=== PATIENT | male | born 1975 | race Caucasian/White ===

== ENCOUNTER 2020-10-15 08:24 | Inpatient (IN) | payer BC ==
[2020-10-15] MEDS ORDERED: BUPIVACAINE 0.25% PF 30 ML VIAL ONE (08:50)
[2020-10-15] MEDS ORDERED: CEFAZOLIN/SWI 2gm 2 GM/20 ML SYR ONE (09:00)
[2020-10-15] MEDS ORDERED: Ringers Lactate 1,000 ML IV ONE ×2 (09:00→12:35)
[2020-10-15] MEDS ORDERED: GLYCOPYRROLATE 0.2 MG/ML SYR ONE (10:57)
[2020-10-15] MEDS ORDERED: propofoL 200 MG/20 ML VIAL IV ONE (10:57)
[2020-10-15] MEDS ORDERED: FENTANYL CITR 100 MCG/2 ML ONE (10:59)
[2020-10-15] MEDS ORDERED: ROCURONIUM 50 MG/5 ML VIAL IV ONE (10:59)
[2020-10-15] MEDS ORDERED: dexAMETHasone 10 MG/ML VIAL ONE (10:59)
[2020-10-15] MEDS ORDERED: MIDAZOLAM HCL 2 MG/2 ML INJ ONE (11:00)
[2020-10-15] MEDS ORDERED: KETOROLAC 30 MG/ML INJ ONE (11:00)
[2020-10-15] MEDS ORDERED: ONDANSETRON 4 MG/2 ML VIAL ONE (11:01)
[2020-10-15] MEDS ORDERED: CLINDAMYCIN INJ 600 MG in NA CHLORIDE 0.9% 50 ML IV ONE (11:09)
[2020-10-15] MEDS ORDERED: FENTANYL CITR 250 MCG/5 ML ONE (11:30)
[2020-10-15] MEDS: HYDROMORPHONE HCL 1 MG/ML INJ ONE ×2 (11:33→13:38)
[2020-10-15] MEDS ORDERED: VECURONIUM 10 MG/VIAL IV ONE (12:12)
[2020-10-15] MEDS ORDERED: NS 0.9% VIAL 10 ML ONE ×3 (12:12→12:37)
[2020-10-15] MEDS ORDERED: EPHEDRINE SULF 50 MG/ML VIAL ONE (12:24)
[2020-10-15] MEDS ORDERED: HYDROMORPHONE HCL 1 MG/ML INJ ONE (12:35)
--- NOTE | 2020-10-15 13:02 | P.OP ---
Preoperative diagnosis: Recurrent Ventral Abdominal Hernia Postoperative diagnosis: Recurrent Ventral Abdominal Hernia Primary procedure: Laparoscopic converted to open primary hernia repair Secondary procedure: small bowel resection Anesthesia: GETA + Local Estimated blood loss: <20cc Specimen: Small Bowel Findings: small bowel inseperable from prior placed mesh Complications: None Implants: none Transferred to: Recovery Room Condition: Good
[2020-10-15] MEDS ORDERED: NEOSTIGMINE 1 MG/ML -5 ML ONE (13:06)
[2020-10-15] MEDS: MEPERIDINE HCL 25 MG/ML SYR ONE ×2 (13:48→13:56)
[2020-10-15 15:41] VITALS: BMI 31.3
[2020-10-15] MEDS: INSULIN -REGULAR HUMAN 50 UNIT/0.5 ML ML SQ SCH ×2 (16:07→20:55)
[2020-10-15] MEDS: Ringers Lactate 1,000 ML IV SCH (16:39)
[2020-10-15] MEDS: CLINDAMYCIN PHOSPHATE 600 MG in NA CHLORIDE 0.9% 50 ML IV SCH (16:40)
[2020-10-15] MEDS: HYDROCODONE/APAP 7.5/325 MG TAB PO PRN ×2 (18:31→22:58)
[2020-10-15] MEDS: ONDANSETRON 4 MG/2 ML VIAL IV PRN (22:59)
--- NOTE | 2020-10-16 00:04 | OP ---
Date of Procedure: 10/15/2020 Surgeon: Giorgio Stevens MD, Preoperative Diagnosis: Recurrent ventral abdominal wall hernia. Postoperative Diagnosis: Recurrent ventral abdominal wall hernia. Procedure Performed: 1.Laparoscopic converted to open primary hernia repair. 2.Small bowel resection. Estimated Blood Loss: Less than 20 mL. Anesthesia: General endotracheal plus local with 0.25% Marcaine without epinephrine. Specimen: Small bowel and plus pieces of prior placed abdominal mesh. Complications: None immediately. Implants: None. Disposition: The patient was transferred to recovery room in good condition. Procedure In Detail: After informed consent was obtained, the patient was brought to the operating r oom, prepped and draped in the usual sterile fashion after adequate anesthesia was achieved. Left up per quadrant area was anesthetized with 0.25% Marcaine and sharply incised. A 5 mm 0-degree optical trocar was introduced in the abdomen without complication. Insufflation was obtained to 15 mmHg at t his time. There was no injury to vital structures upon entry to the abdomen. Inspection showed that there was small bowel adherent to the anterior abdominal wall where a previously placed mesh was gayla dent and the previously placed mesh could be easily visualized in close apposition to the small bowel . An additional 12 mm trocar was placed in the left lower quadrant. This was similarly anesthetized , sharply incised and 12 mm trocar was introduced in the abdomen without complication. Three more tr ocars were placed for a total of 5 trocars placed throughout the procedure, 1 in the left mid abdomen , 2 on the right abdomen, 1 in the right upper quadrant, 1 in the right lower quadrant. Ratcheted gr aspers were used to dissect the small bowel partially off the anterior abdominal wall until a plane c ould not be achieved. Multiple attempts at dissection made it evident that the small bowel could not be removed from the posterior surface of the mesh. I tried multiple maneuvers decompressing using s cissors, using ligature, gentle traction, but the bowel was in such close apposition to the mesh that I felt that the bowel was getting traumatized and beginning to appear injured. As such, I opted to convert the procedure to an open procedure and perform a small-bowel resection as I could not remove the small bowel from the hernia mesh. At this point, prior to decompression of the abdomen and prior to making my midline laparotomy incision, I closed the 12 mm trocar using Surjit-Vicente suture pas ser with a 0 Vicryl in an interrupted fashion with good approximation of tissues. I then turned my a ttention to the midline. I left the abdomen inflated and cut down with a 10 blade down through subcu taneous tissue over the previous upper midline incision. I dissected down through subcutaneous tissu es with electrocautery until I encountered the hernia mesh. At this point, I opened the abdomen and opted to remove the segment of mesh using scissors and this segment of small bowel was found to be qu ite traumatized. As such, I opted to perform the small bowel resection at this point. I made a mese nteric window in the midportion of the small bowel on the proximal and distal aspects. The DIMITRIOS 55 wa s fired across the small bowel at this point, and then LigaSure was used to take the mesentery down a t this point. This segment of small bowel was then sent off for pathologic examination. I then brou ght the small bowel proximal and distal ends in a [id number] fashion, secured the proximal and dist al aspects of the small bowel using an interrupted 3-0 silk suture. I then created a sterile field, made a small enterotomy on the proximal distal limbs with electrocautery. I dilated this with a hemo stat and placed a DIMITRIOS 55 into the common channel and fired this. There was minimal bleeding from the lumen and as such, at this point, I opted to close the common channel with a 3-0 PDS suture in a Con deanna type running suture and a second layer of interrupted 3-0 silk Lembert was used to close a secon d layer. At this point, I closed the mesenteric defect with a running 3-0 Vicryl suture and good jean carlos roximation of the tissues was achieved at this point. The common channel was palpated and found to b e widely patent. As such, I returned the small bowel back to the peritoneal space. I irrigated the abdomen and suctioned it out at this point and closed the abdomen primarily taking large bites throug h the abdominal wall using a 0 looped PDS while the fish bowel protector in place and I closed the ab dominal wall at this point and the fish was removed. At this point, I irrigated the skin and closed all the incisions with interrupted aurelio and a sterile dressing placed over top along with abdomina l binder. The patient tolerated the procedure well without evidence of complication and transferred to PACU in good condition. All counts were correct at the end of the case. ELSA/LONNY Voice ID: [id number] Report ID: [id number]
[2020-10-16] MEDS: CLINDAMYCIN PHOSPHATE 600 MG in NA CHLORIDE 0.9% 50 ML IV SCH ×3 (00:57→16:23)
[2020-10-16] MEDS: Ringers Lactate 1,000 ML IV SCH ×3 (00:57→16:55)
[2020-10-16] MEDS: MORPHINE 2 MG/ML SYR IV PRN ×4 (01:07→23:01)
[2020-10-16] MEDS: ONDANSETRON 4 MG/2 ML VIAL IV PRN ×3 (04:04→17:39)
[2020-10-16 06:14] LABS: Basophils % 0.2 % (0-1.3); Hematocrit 38.1 % (39.6-49.0); Lymphocytes % 8.6 % (15.3-44.8); MPV 8.6 fL (7.6-11.3); RBC Red Blood Cell Count 4.12 M/uL (4.33-5.43)
[2020-10-16 06:26] LABS: Phosphorus 2.6 mg/dL (2.5-4.9)
[2020-10-16] MEDS: HYDROCODONE/APAP 7.5/325 MG TAB PO PRN ×2 (07:19→13:18)
[2020-10-16] MEDS: INSULIN -REGULAR HUMAN 50 UNIT/0.5 ML ML SQ SCH ×4 (07:30→20:47)
[2020-10-16] MEDS ORDERED: SODIUM CHLORIDE 0.9% 10ML INJ IV PRN (08:53)
[2020-10-16] MEDS: PANTOPRAZOLE 40 MG INJ IVP SCH (09:53)
--- NOTE | 2020-10-16 14:03 | P.PN ---
Subjective Date of Service: 10/16/20 Subjective: Improving (Patient has been passing gas, minimal nausea, no bloating, no emesis, has some GERD.) Physical Examination - Vital Signs Temperature: 98.5 F Blood Pressure: 133/89 Pulse: 107 Respirations: 18 Pulse Ox (%): 97 - Physical Exam General: Alert, In no apparent distress, Cooperative HEENT: Mucous membr. moist/pink Respiratory: Clear to auscultation bilaterally Cardiovascular: Regular rate/rhythm Gastrointestinal: Other (soft, mild appropriate TTP, ND, no rebound, incision clean. ) - Studies Laboratory Data (last 24 hrs) 10/16/20 05:49: Sodium 139, Potassium 4.0, BUN 22 H, Creatinine 0.93, Glucose 121 H, Phosphorus 2.6, Magnesium 2.0 10/16/20 05:49: WBC 11.60 H, Hgb 13.0 L, Hct 38.1 L, Plt Count 223 Assessment And Plan - Current Problems (Diagnosis) (1) Incarcerated hernia Current Visit: Yes Status: Acute (2) Incarcerated hernia of abdominal cavity Current Visit: Yes Status: Acute (3) S/P small bowel resection Current Visit: Yes Status: Acute Plan: Patient is a 45 year old man who presented with an incarcated intra-abdominal hernia with severe adhesions, mesh was inseparable from the small bowel. - s/p small bowel resection and primary repair of ventral abdominal hernia - continue current pain regime - increase LR to 125cc/hr - continue clear liquids - await more bowel function - ambulate with assist - abdominal binder - start protonix - incentive spirometry
[2020-10-16] MEDS: CHLORPROMAZINE 25 MG TAB PO SCH (17:38)
[2020-10-16] MEDS: Levofloxacin500mg IV 500 MG/100 ML BAG IV SCH (18:00)
[2020-10-16] MEDS: D5.45NS W/KCL 20MEQ 20 MEQ/1,000 ML BAG IV SCH (18:00)
[2020-10-17] MEDS: METRONIDAZOLE 500mg IVPB 500 MG/100 ML BAG IV SCH ×3 (01:41→16:47)
[2020-10-17 04:26] LABS: Absolute Lymphocytes (CBC) 2.3 K/uL (0.7-4.9); Basophils % 0.6 % (0-1.3); Lymphocytes % 27.5 % (15.3-44.8); MPV 8.3 fL (7.6-11.3); RBC Red Blood Cell Count 3.27 M/uL (4.33-5.43)
[2020-10-17] MEDS: D5.45NS W/KCL 20MEQ 20 MEQ/1,000 ML BAG IV SCH ×3 (05:05→21:22)
[2020-10-17] MEDS: MORPHINE 2 MG/ML SYR IV PRN ×4 (05:06→21:18)
[2020-10-17] MEDS: ONDANSETRON 4 MG/2 ML VIAL IV PRN (05:06)
[2020-10-17 05:11] LABS: BUN Blood Urea Nitrogen 25 mg/dL (7-18); Bicarbonate 28 mmol/L (21-32); Glucose Level 111 mg/dL (74-106); Magnesium 2.1 mg/dL (1.8-2.4); Phosphorus 1.5 mg/dL (2.5-4.9); Potassium 3.9 mmol/L (3.5-5.1); Sodium Level 143 mmol/L (136-145)
[2020-10-17] MEDS: INSULIN -REGULAR HUMAN 50 UNIT/0.5 ML ML SQ SCH ×4 (07:30→20:58)
[2020-10-17] MEDS ORDERED: POTASSIUM PHOS IN 0.9 % NACL 15 MMOL/250 ML BAG IV ONE (08:00)
[2020-10-17] MEDS: HYDROCODONE/APAP 7.5/325 MG TAB PO PRN (08:01)
[2020-10-17] MEDS: PANTOPRAZOLE 40 MG INJ IVP SCH (08:02)
--- NOTE | 2020-10-17 08:24 | P.PN ---
Subjective Date of Service: 10/17/20 Subjective: Improving (Patient had hiccups last evening, but was ambulatory yesterday, hiccups gone now. He states pain is stable, no distention. Passing gas, no nausea or emesis.) Physical Examination - Vital Signs Temperature: 97.8 F Blood Pressure: 136/93 Pulse: 104 Respirations: 18 Pulse Ox (%): 96 - Physical Exam General: Alert, In no apparent distress, Cooperative HEENT: Mucous membr. moist/pink Respiratory: Clear to auscultation bilaterally, Normal air movement Cardiovascular: Other (tachycardia, otherwise rhythm normal, no murmurs) Gastrointestinal: Other (soft, mild appropriate TTP, minimal distention, no rebound, no guarding, incision has minimal blood staining. LLQ trocar site is minimally tender as well. ) Neurological: Normal speech - Studies Laboratory Data (last 24 hrs) 10/17/20 04:05: Sodium 143, Potassium 3.9, BUN 25 H, Creatinine 0.88, Glucose 111 H, Phosphorus 1.5 L, Magnesium 2.1 10/17/20 04:05: WBC 8.40 D, Hgb 10.7 L, Hct 30.0 L D, Plt Count 162 D Assessment And Plan - Current Problems (Diagnosis) (1) Incarcerated hernia Current Visit: Yes Status: Acute (2) Incarcerated hernia of abdominal cavity Current Visit: Yes Status: Acute (3) S/P small bowel resection Current Visit: Yes Status: Acute Plan: Patient is a 45 year old man who presented with an incarcated intra-abdominal hernia with severe adhesions, mesh was inseparable from the small bowel. - s/p small bowel resection and primary repair of ventral abdominal hernia - continue current pain regime - change to D5 1/2 NS+ 20meq kcl @ 75cc/hr - full liquids - await more bowel function - ambulate with assist - abdominal binder - continue protonix - incentive spirometry - levaquin / flagyl to continue for now - will add prn hydralazine for HTN
[2020-10-17] MEDS ORDERED: HYDRALAZINE HCL 20 MG/ML VIAL IV PRN (08:25)
[2020-10-17] MEDS: Levofloxacin500mg IV 500 MG/100 ML BAG IV SCH (18:00)
[2020-10-17] MEDS: CHLORPROMAZINE 25 MG TAB PO SCH (21:00)
[2020-10-18] MEDS: METRONIDAZOLE 500mg IVPB 500 MG/100 ML BAG IV SCH (00:36)
[2020-10-18] MEDS: MORPHINE 2 MG/ML SYR IV PRN (01:48)
[2020-10-18 03:50] VITALS: O2SAT 98
[2020-10-18 05:45] LABS: Absolute Lymphocytes (CBC) 1.6 K/uL (0.7-4.9); Basophils % 0.6 % (0-1.3); Hematocrit 30.4 % (39.6-49.0); Lymphocytes % 23.8 % (15.3-44.8); MPV 8.5 fL (7.6-11.3); RBC Red Blood Cell Count 3.27 M/uL (4.33-5.43)
[2020-10-18 06:00] LABS: BUN Blood Urea Nitrogen 12 mg/dL (7-18); Bicarbonate 28 mmol/L (21-32); Glucose Level 106 mg/dL (74-106); Magnesium 2.1 mg/dL (1.8-2.4); Phosphorus 2.5 mg/dL (2.5-4.9); Potassium 3.9 mmol/L (3.5-5.1); Sodium Level 141 mmol/L (136-145)
[2020-10-18] MEDS: HYDROCODONE/APAP 7.5/325 MG TAB PO PRN (07:19)
[2020-10-18] MEDS ORDERED: POTASSIUM 25 MEQ EFFERV TAB PO ONE (09:00)
[2020-10-18 09:06] VITALS: BP 133/91; TEMP 98.1
--- NOTE | 2020-11-11 11:14 | P.DS ---
Admission Date: 10/15/20 Discharge Date: 10/18/20 Disposition: ROUTINE DISCHARGE Discharge Condition: GOOD - Problems (1) Incarcerated hernia Status: Acute (2) Incarcerated hernia of abdominal cavity Status: Acute (3) S/P small bowel resection Status: Acute Brief History of Present Illness: Patient is a 45 year old man who presented for laparoscopic ventral hernia repair with mesh. He had a prior open ventral hernia repair with mesh years prior, but had a recurrence. He had an attempted laparoscopic repair, however the small bowel was inseparable from the prior placed mesh, and as such, an open laparotomy was performed with small bowel resection, followed by primary hernia repair without mesh. Hospital Course: He did well after small bowel resection, tolerated diet, ambulatory, return of bowel function, pain well controlled. Vital Signs/Physical Exam: Temp Pulse Resp BP Pulse Ox 98.1 F 90 19 133/91 H 96 10/18/20 08:00 10/18/20 08:00 10/18/20 08:00 10/18/20 08:00 10/18/20 08:00 General: Alert, In no apparent distress, Cooperative HEENT: Mucous membr. moist/pink Neck: Supple Respiratory: Clear to auscultation bilaterally, Normal air movement Cardiovascular: Regular rate/rhythm Gastrointestinal: Other (soft, mild appropriate TTP, ND, incision clean, aurelio in place) Laboratory Data at Discharge: WBC 6.70 K/uL (4.3-10.9) D 10/18/20 05:23 Hgb 10.3 g/dL (13.6-17.9) L 10/18/20 05:23 Hct 30.4 % (39.6-49.0) L 10/18/20 05:23 Plt Count 173 K/uL (152-406) 10/18/20 05:23 Sodium 141 mmol/L (136-145) 10/18/20 05:23 Potassium 3.9 mmol/L (3.5-5.1) 10/18/20 05:23 BUN 12 mg/dL (7-18) 10/18/20 05:23 Creatinine 0.85 mg/dL (0.55-1.3) 10/18/20 05:23 Glucose 106 mg/dL (74-106) 10/18/20 05:23 Phosphorus 2.5 mg/dL (2.5-4.9) D 10/18/20 05:23 Magnesium 2.1 mg/dL (1.8-2.4) 10/18/20 05:23 Home Medications: Amlodipine [Norvasc] 10 mg PO DAILY 10/10/20 Anastrozole 1 mg PO SEECOM 10/10/20 Ascorbic Acid [Vitamin C] 500 mg PO DAILY 10/10/20 Atomoxetine HCl [Strattera] 18 mg PO DAILY 10/10/20 Azithromycin [Zithromax] 250 mg PO DAILY 10/10/20 Cartilage/Collagen/Bor/Hyalur [Joint Health Tablet] 1 each PO DAILY 10/10/20 Cholecalciferol (Vitamin D3) [Vitamin D3] 2,000 unit PO DAILY 10/10/20 Losartan Potassium 100 mg PO DAILY 10/10/20 Sertraline HCl 50 mg PO DAILY 10/10/20 Zinc 50 mg PO DAILY 10/10/20 clomiPHENE citrate [Clomiphene Citrate] 50 mg PO SEECOM 10/10/20 Diet: Regular Activity: No lifting more than 10 lbs Followup: Giorgio Stevens MD [ACTIVE - CAN ADMIT] - Bon Abbasi MD [Primary Care Provider] -
== END 2020-10-18 08:33 | disposition home or self-care (01) | DRG 331 ==
LOC: OR 08:24 → 2ND 13:53
PROVIDERS: ADMIT Surgery; ATTEND Surgery
PROC: 0WQF0ZZ Repair Abdominal Wall, Open Approach (ICD-10-PCS; 2020-10-15)
PROC: 0WJF4ZZ Inspection of Abdominal Wall, Percutaneous Endoscopic Approach (ICD-10-PCS; 2020-10-15)
PROC: 0DT80ZZ Resection of Small Intestine, Open Approach (ICD-10-PCS; principal; 2020-10-15 10:00)
DX: K43.0 Incisional hernia with obstruction, without gangrene (principal); K21.9 Gastro-esophageal reflux disease without esophagitis; I10 Essential (primary) hypertension; Z53.31 Laparoscopic surgical procedure converted to open procedure; Z20.822 Contact with and (suspected) exposure to COVID-19
CPT/HCPCS: 36415; 80048; 82947; 83735; 84100; 85025; 88307; 94010; 97116; 97161; C9113; J0690; J1100; J1170; J2175; J2250; J2270; J2405; J2704; J2710; J3010; J7120; S0077; U0002

== ENCOUNTER 2023-03-12 10:00 | Day surgery (SDC) | payer OTHER ==
[2023-03-09 10:05] LABS: Potassium 4.1 mEq/L (3.5-5.1)
[2023-03-12] MEDS ORDERED: Ringers Lactate 1,000 ML IV ONE ×2 (10:24→12:54)
[2023-03-12] MEDS ORDERED: CEFAZOLIN SODIUM 2 GM/VIAL ONE (10:24)
[2023-03-12] MEDS ORDERED: MIDAZOLAM HCL 2 MG/2 ML INJ ONE (11:06)
[2023-03-12] MEDS ORDERED: propofoL 200 MG/20 ML VIAL IV ONE (11:06)
[2023-03-12] MEDS ORDERED: dexAMETHasone 10 MG/ML VIAL ONE (11:07)
[2023-03-12] MEDS ORDERED: ROCURONIUM 50 MG/5 ML VIAL IV ONE (11:07)
[2023-03-12] MEDS ORDERED: KETOROLAC 30 MG/ML INJ ONE (11:07)
[2023-03-12] MEDS ORDERED: FENTANYL CITR 100 MCG/2 ML ONE ×2 (11:07→12:18)
[2023-03-12] MEDS ORDERED: LIDOCAINE 2% MPF 5 ML VIAL ONE (11:07)
[2023-03-12] MEDS ORDERED: ONDANSETRON 4 MG/2 ML VIAL ONE (11:07)
[2023-03-12] MEDS ORDERED: CLINDAMYCIN 600MG/D5W 50 ML IV ONE (11:30)
[2023-03-12] MEDS: BUPIVACAINE 0.25% PF 30 ML VIAL ONE ×3 (11:40→12:30)
[2023-03-12] MEDS ORDERED: EPHEDRINE SULF 50 MG/ML VIAL ONE (12:08)
[2023-03-12] MEDS ORDERED: GLYCOPYRROLATE 0.2 MG/ML SYR ONE (12:21)
--- NOTE | 2023-03-12 13:00 | P.OP ---
Preoperative diagnosis: Recurrent Ventral Incisional Hernia Postoperative diagnosis: Recurrent Ventral Incisional Hernia Primary procedure: Laparoscopic Umbilical Hernia Repair with Mesh Anesthesia: GETA + Local Estimated blood loss: <5cc Specimen: none Findings: Recurrent Periumbilical Incisional Hernia, diastasis recti Complications: None Implants: 11.4 cm Bard ventralite mesh, sorbafix x 60 tacks Transferred to: Recovery Room Condition: Good
[2023-03-12] MEDS: HYDROMORPHONE HCL 1 MG/ML INJ ONE ×2 (13:20→13:30)
[2023-03-12 13:40] VITALS: TEMP 97
[2023-03-12] MEDS ORDERED: HYDROCODONE/APAP 7.5/325 MG TAB ONE (14:47)
[2023-03-12 16:24] VITALS: BP 131/80; O2SAT 100
--- NOTE | 2023-03-12 19:27 | OP ---
Date of Procedure: 03/12/2023 Surgeon: Giorgio Stevens MD, Preoperative Diagnosis: Recurrent ventral incisional hernia. Postoperative Diagnosis: Recurrent ventral incisional hernia. Procedure Performed: Laparoscopic umbilical hernia repair with mesh. Anesthesia: General endotracheal plus local with 0.25% Marcaine. Estimated Blood Loss: Less than 5 cc. Specimen: None. Findings: Recurrent periumbilical incisional hernia. This is in the periumbilical position with some minimal extension superiorly towards the epigastrium. It was approximately 1.5 to 2 cm hernia defect with 2 small [place] cheese type appearance. Addition ally, he has diastasis recti in the region of the previous hernia repair, but no hernia was evident t hrough the previous hernia repair. Complications: None. Implants: 11.4 cm Bard Ventralight mesh with Echo positioning system, SorbaFix absorbable fixation t acks x60. Disposition: Patient was transferred to recovery room in good condition. Procedure In Detail: After informed consent was obtained, patient was brought to the operating room, prepped and draped in the usual sterile fashion. After adequate anesthesia was achieved, I anesthet ized the area of the left upper quadrant down to subcutaneous tissues, made incision. A 5 mm 0-degre e optical trocar was introduced in the abdomen without evidence of complication. Insufflation was ob tained to 15 mmHg at this time. There was no injury to vital structures in the abdomen. At this poi nt, additional trocars placed. A 12 mm trocar was placed in the left mid abdomen. This was similarl y anesthetized and sharply incised and a 12 mm trocar was placed under direct visualization without e vidence of complication. At this point, then I used a LigaSure device to peel back the preperitoneal fat to expose a periumbilical hernia and diastasis recti at the superior previous ventral hernia rep air, which is in the supraumbilical midline area. Small [place] cheese type appearance was appreciated at this point with an obvious umbilical hernia approximately 1.5-2 cm in size with small [place]ian chees e satellite punctate defects superior to this and a diastasis recti appreciated at this point. I pee led back all preperitoneal fat to allow for an appropriate landing zone of the mesh to the anterior a bdominal wall. Using a LigaSure, applied Medical type device with good hemostasis at this point. en, I brought the Endo Stitch with 0 V-Loc suture onto the field and sewed the hernia defects closed in a running fashion with good approximation of tissues imbricating the hernia sac. I then deployed 11.[address] mesh with Echo positioning System through the supraumbilical position. I centrally positioned the mesh and attached to the anterior bowel wall using SorbaFix absorbable fixa tion tacks. The balloon deployment system was then removed and additional total of 60 tacks were ina leeann to the anterior abdominal wall with good apposition of the mesh to the abdominal wall. No hemost atic measures required. I then tilted the patient slightly away, closed the 12 mm trocar site using a Surjit-Vicente suture passer with 0 Vicryl in interrupted fashion with good approximation of tissu es. The remaining trocar was examined. The abdomen was then desufflated under direct visualization without evidence of complication. Remaining trocars were removed. All skin incisions were then copi ously irrigated, closed with a 4-0 Monocryl fashion. Dermabond was placed over top. Patient tolerat ed the procedure without evidence of any complication and transferred back in good condition. All co unts were correct at the end of the case. TK/MODL Voice ID: [id number] Report ID: [id number]
== END 2023-03-12 15:45 | disposition home or self-care (01) ==
LOC: OR 10:00
PROVIDERS: ATTEND Surgery
PROC: 0WUF4JZ Supplement Abdominal Wall with Synthetic Substitute, Percutaneous Endoscopic Approach (ICD-10-PCS; 2023-03-12)
PROC: 0WUF4JZ Supplement Abdominal Wall with Synthetic Substitute, Percutaneous Endoscopic Approach (ICD-10-PCS; principal; 2023-03-12 11:45)
DX: K43.2 Incisional hernia without obstruction or gangrene (principal); I10 Essential (primary) hypertension
CPT/HCPCS: 80048; 36415; 49613; J2704; J2001; J2250; J3010 ×2; J1100; J1170; J2405; J7120 ×2; C1781

== ENCOUNTER 2023-04-03 07:32 | Day surgery (SDC) | payer OTHER ==
[2023-04-03] MEDS: Ringers Lactate 1,000 ML IV ONE ×2 (08:00→08:35)
[2023-04-03] MEDS ORDERED: propofoL 200 MG/20 ML VIAL IV ONE ×2 (08:06→09:24)
[2023-04-03] MEDS ORDERED: LIDOCAINE 1% MPF 5 ML VIAL ONE (08:06)
[2023-04-03 09:51] VITALS: TEMP 97.5; O2SAT 98
[2023-04-03 12:54] VITALS: BP 134/75
== END 2023-04-03 10:15 | disposition home or self-care (01) ==
LOC: OR 07:32
PROVIDERS: ATTEND Surgery
PROC: 0DBH8ZX Excision of Cecum, Via Natural or Artificial Opening Endoscopic, Diagnostic (ICD-10-PCS; principal; 2023-04-03 09:00)
DX: Z12.11 Encounter for screening for malignant neoplasm of colon (principal); D12.0 Benign neoplasm of cecum; K64.8 Other hemorrhoids
CPT/HCPCS: 88305; 45385; J2704 ×2; J2001; J7120

== ENCOUNTER 2023-04-04 16:41 | Observation (INO) | payer OTHER ==
[2023-04-04] MEDS ORDERED: NA CHLORIDE 0.9% 2,000 ML ONE (17:18)
[2023-04-04 17:24] LABS: Protime INR 0.91
--- NOTE | 2023-04-04 17:29 | RAD REPORT ---
EXAM DESCRIPTION: Radha Single View04/04/2023 5:22 pm CLINICAL HISTORY: Syncope COMPARISON: September 2022 FINDINGS: The lungs appear clear of acute infiltrate. The heart is normal size IMPRESSION: No acute abnormalities displayed
[2023-04-04 17:33] LABS: Hematocrit 48.3 % (39.6-49.0); Lymphocytes % 26.7 % (15.3-44.8); MCV 92.2 fL (80-100); MPV 8.7 fL (7.6-11.3); Platelets 258 thou/uL (152-406); RBC Red Blood Cell Count 5.24 M/uL (4.33-5.43)
[2023-04-04 17:36] LABS: Albumin 3.7 g/dL (3.4-5.0); Bilirubin Direct 0.2 mg/dL (0-0.2); Bilirubin Indirect, Calculated 0.3 mg/dL (0.2-0.8); Bilirubin Total 0.5 mg/dL (0.2-1.0); Potassium 4.2 mEq/L (3.5-5.1); Protein, Total 6.7 g/dL (6.4-8.2); Troponin High Sensitivity 4.6 pg/mL (<58.9)
[2023-04-04] MEDS ORDERED: NA CHLORIDE 0.9% 1,000 ML ONE (18:00)
--- NOTE | 2023-04-04 18:28 | RAD REPORT ---
EXAM DESCRIPTION: CT - Abdomen Pelvis W Contrast - 04/04/2023 6:06 pm CLINICAL HISTORY: Abdominal pain COMPARISON: 2021 TECHNIQUE: Computed axial tomography of the abdomen pelvis was obtained. 100 cc Isovue-300 was admin istered intravenously. Oral contrast was not requested which limits evaluation of bowel and appendix All CT scans are performed using dose optimization technique as appropriate and may include automated exposure control or mA/KV adjustment according to patient size. FINDINGS: The liver, spleen, pancreas, adrenal and kidneys appear unremarkable. There is no evidence of diverticulitis. 5.8 x 3.3 centimeter fluid-filled structure present within th e anterior right abdomen below the level of kidneys most likely represents an atonic loop of small pastor wel status post small bowel surgery. . Normal appendix Ventral hernia repair. 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 Subchondral sclerosis, disc space narrowing and vacuum phenomena are present. IMPRESSION: No acute abnormality is displayed
--- NOTE | 2023-04-04 19:29 | ER ---
Nurse's Notes [facility] Name: Eliceo Hamilton Age: 47 yrs Sex: Male : 1975 Arrival Date: 04/04/2023 Time: 16:41 Bed 7 Private MD: Diagnosis: GI Bleed/ Gastrointestinal hemorrhage, unspecified Presentation: 04/04 16:52 Chief complaint: Four episodes of bright red rectal bleeding followed by near syncopal hb episode this afternoon. Had colonoscopy with polyp removal by Dr. Stevens yesterday. Pale and diaphoretic in triage. Coronavirus screen: At this time, the client does not indicate any symptoms associated with coronavirus-19. Ebola Screen: No symptoms or risks identified at this time. Initial Sepsis Screen: Does the patient meet any 2 criteria? No. Patient's initial sepsis screen is negative. Does the patient have a suspected source of infection? No. Patient's initial sepsis screen is negative. Risk Assessment: Do you want to hurt yourself or someone else? Patient reports no desire to harm self or others. Onset of symptoms was April 04, 2023. 16:52 Method Of Arrival: Ambulatory hb 16:52 Acuity: KITTY 2 hb Historical: - Allergies: 16:55 PENICILLINS; hb - Home Meds: 16:56 Aspirin Oral [Active]; hb - PMHx: 16:55 back problem (possible fracture); Hypertensive disorder; hb - PSHx: 16:55 Tonsillectomy; hernia repair; hb - Immunization history:: Adult Immunizations up to date. - Social history:: Smoking status: Patient denies any tobacco usage or history of. Screenin:15 [facility] ED Fall Risk Assessment (Adult) Score/Fall Risk Level 0 - 2 = Low Risk. Abuse iw screen: Denies threats or abuse. Denies injuries from another. Nutritional screening: No deficits noted. Tuberculosis screening: No symptoms or risk factors identified. Assessment: 16:50 General: Appears in no apparent distress. uncomfortable, Behavior is cooperative, rs5 anxious. 16:50 Pain: Complains of pain in lower abdomin Pain does not radiate. Pain currently is 5 out rs5 of 10 on a pain scale. Quality of pain is described as aching, Pain began this morning Is continuous. Neuro: Level of Consciousness is awake, alert, obeys commands, Oriented to person, place, time, situation. Cardiovascular: Heart tones S1 S2 Rhythm is regular. Cardiovascular: Respiratory: Airway is patent Respiratory effort is even, unlabored. GI: Abdomen is round non-distended, Bowel sounds present X 4 quads. Abd is soft and non tender X 4 quads. Reports "I' have bright red blood in my stool when I use the restroom. This started yesterday and so far I've had three of them". : No signs and/or symptoms were reported regarding the genitourinary system. :. EENT: No signs and/or symptoms were reported regarding the EENT system. Derm: Skin is pink, warm \\T\\ dry. Musculoskeletal: Range of motion: intact in all extremities. 17:08 Reassessment: Patient is alert, oriented x 3, equal unlabored respirations, skin rs5 warm/dry/pink. To bedside for blood draw, blanket provided per pt request. 18:10 Reassessment: Pt had BM. Pt passed small amounts of stool with bright red blood. rs5 18:29 Reassessment: Patient and/or family updated on plan of care and expected duration. Pain rs5 level reassessed. Patient is alert, oriented x 3, equal unlabored respirations, skin warm/dry/pink. Pain: Complains of pain in lower abdomen Pain does not radiate. Pain currently is 4 out of 10 on a pain scale. Quality of pain is described as aching, Is continuous. 18:41 Reassessment: Patient is alert, oriented x 3, equal unlabored respirations, skin aa5 warm/dry/pink. socks provided for comfort. . Vital Signs: 16:50 BP 93 / 71; Pulse 77; Resp 17; Temp 98.4(O); Pulse Ox 97% on R/A; rs5 16:52 BP 103 / 67; Pulse 80; Resp 20; Temp 98.6(O); Pulse Ox 97% on R/A; Weight 109.77 kg; hb Height 6 ft. 0 in. ; Pain 0/10; 17:10 BP 113 / 75; Pulse 72; Resp 18; Pulse Ox 99% on R/A; rs5 17:30 BP 120 / 77; Pulse 78; Resp 18; Pulse Ox 99% on R/A; rs5 18:00 BP 138 / 89; Pulse 75; Resp 18; Pulse Ox 99% on R/A; rs5 18:33 BP 132 / 84; Pulse 74; Resp 17; Pulse Ox 99% on R/A; rs5 16:52 Body Mass Index 32.82 (109.77 kg, 182.88 cm) hb 16:52 Pain Scale: Adult hb ED Course: 16:45 Patient arrived in ED. mg5 16:45 Fortunato Whitt PA is PHCP. cp 16:45 Fortunato Vincent MD is Attending Physician. cp 16:54 Triage completed. hb 16:56 Arm band placed on. hb 17:08 Anthony Temple, RN is Primary Nurse. rs5 17:08 Inserted saline lock: 20 gauge in right antecubital area, using aseptic technique. rs5 Blood collected. 17:24 XRAY Chest (1 view) In Process Unspecified. EDMS 18:08 CT Abd/Pelvis - IV Contrast Only In Process Unspecified. EDMS 18:38 Missed attempt(s): 20 gauge in left antecubital area. Bleeding controlled, band aid aa5 applied, catheter tip intact. 18:40 Inserted saline lock: 20 gauge in left antecubital area, using aseptic technique. aa5 19:00 Patient has correct armband on for positive identification. iw 19:28 Judd Avelar MD is Hospitalizing Provider. cp 20:15 No provider procedures requiring assistance completed. Patient admitted, IV remains in iw place. 20:35 Provided Education on: admission. iw Administered Medications: 17:29 Drug: NS 0.9% IV 1000 ml Route: IV; Rate: 1 bolus; Site: right antecubital; rs5 18:30 Follow up: IV Status: Completed infusion iw 17:29 Drug: NS 0.9% IV 1000 ml Route: IV; Rate: 1 bolus; Site: right antecubital; rs5 18:30 Follow up: IV Status: Completed infusion iw 18:38 Drug: NS 0.9% IV 1000 ml Route: IV; Rate: 100 ml/hr; Site: left antecubital; aa5 20:32 Follow up: IV Status: Infusion continued upon admission iw Medication: 20:15 VIS not applicable for this client. iw Outcome: 19:29 Decision to Hospitalize by Provider. cp 20:15 Admitted to Med/surg iw 20:15 Condition: stable 20:35 Admitted to Med/surg accompanied by nurse, via wheelchair, room 207, with chart, Report iw called to Tommie 20:35 Discharge instructions given to patient, Instructed on the need for admit, Demonstrated understanding of instructions. 20:36 Patient left the ED. iw Signatures: Dispatcher [employer] Karey Watkins RN RN Zulay Day RN RN aa5 Fortunato Whitt PA PA cp Baxter, Heather, RN RN Anthony Temple RN RN rs5 Jenny Keyes mg5 Corrections: (The following items were deleted from the chart) 16:56 16:52 Chief complaint: Four episodes of bright red rectal bleeding followed by near hb syncopal episode this afternoon. Had colonoscopy with polyp removal yesterday. Pale and diaphoretic in triage. hb 18:28 17:00 Reassessment: Patient is alert, oriented x 3, equal unlabored respirations, skin rs5 warm/dry/pink. To bedside for blood draw. rs5
--- NOTE | 2023-04-04 19:29 | EDPHYS ---
Physician Documentation [facility] Name: Eliceo Hamilton Age: 47 yrs Sex: Male : 1975 Arrival Date: 04/04/2023 Time: 16:41 Bed 7 Private MD: ED Physician Fortunato Vincent HPI: 04/04 17:00 This 47 yrs old Male presents to ER via Ambulatory with complaints of Post Surgical cp Bleeding, Anxiety, Near Syncope. 17:00 The patient presents to the emergency department with rectal bleeding, a large amount, cp bright red blood with bowel movement, in toilet bowl. 17:00 Onset: The symptoms/episode began/occurred today. cp 17:00 Abdominal pain: described as crampy, that does not radiate. Associated signs and cp symptoms: Pertinent positives: diarrhea, near-syncope, Pertinent negatives: chest pain, constipation, fever, syncope, vomiting. Severity of symptoms: in the emergency department the symptoms are unchanged despite home interventions. The patient has not experienced similar symptoms in the past. Patient reports having colonoscopy performed by DR Stevens yesterday with removal of a polyp. Takes aspirin daily and took dose this morning. Historical: - Allergies: 16:55 PENICILLINS; hb - Home Meds: 16:56 Aspirin Oral [Active]; hb - PMHx: 16:55 back problem (possible fracture); Hypertensive disorder; hb - PSHx: 16:55 Tonsillectomy; hernia repair; hb - Immunization history:: Adult Immunizations up to date. - Social history:: Smoking status: Patient denies any tobacco usage or history of. ROS: 17:05 Abdomen/GI: Positive for abdominal pain, diarrhea, rectal bleeding, Negative for cp vomiting. 17:05 Constitutional: Negative for fever. cp 17:05 Eyes: Negative for injury, pain, redness, and discharge. cp 17:05 ENT: Negative for drainage from ear(s), ear pain, sore throat, difficulty swallowing, difficulty handling secretions. 17:05 Cardiovascular: Negative for chest pain, edema, palpitations. 17:05 Respiratory: Negative for cough, shortness of breath, wheezing. 17:05 Neuro: Positive for near syncope, Negative for altered mental status, headache, syncope. 17:05 All other systems are negative. Exam: 17:10 Constitutional: The patient appears in no acute distress, alert, awake, cp non-diaphoretic, non-toxic, well developed, well nourished, anxious, overweight 17:10 Head/Face: Normocephalic, atraumatic. cp 17:10 Eyes: Periorbital structures: appear normal, Pupils: equal, round, and reactive to light and accomodation, Extraocular movements: intact throughout, Conjunctiva: normal, no exudate, no injection, Sclera: no appreciated abnormality, Lids and lashes: appear normal, bilaterally. 17:10 ENT: External ear(s): are unremarkable, Nose: is normal, Mouth: Lips: moist, Oral mucosa: pink and intact, moist, Posterior pharynx: is normal, airway is patent, no erythema, no exudate. 17:10 Chest/axilla: Inspection: normal. 17:10 Cardiovascular: Rate: normal, Rhythm: regular, Edema: is not appreciated, JVD: is not appreciated. 17:10 Respiratory: the patient does not display signs of respiratory distress, Respirations: normal, no use of accessory muscles, no retractions, labored breathing, is not present, Breath sounds: are clear throughout, no decreased breath sounds, no stridor, no wheezing. 17:10 Abdomen/GI: Inspection: obese Bowel sounds: active, all quadrants, Palpation: soft, in all quadrants, mild abdominal tenderness, in the right lower quadrant and left lower quadrant, rebound tenderness, is not appreciated, involuntary guarding, is not appreciated. 17:10 Back: pain, is absent, ROM is normal. 17:10 Neuro: Orientation: to person, place \T\ time. Mentation: is normal, Cerebellar function: is grossly normal, Motor: moves all fours, strength is normal, Sensation: no obvious gross deficits. Vital Signs: 16:50 BP 93 / 71; Pulse 77; Resp 17; Temp 98.4(O); Pulse Ox 97% on R/A; rs5 16:52 BP 103 / 67; Pulse 80; Resp 20; Temp 98.6(O); Pulse Ox 97% on R/A; Weight 109.77 kg; hb Height 6 ft. 0 in. ; Pain 0/10; 17:10 BP 113 / 75; Pulse 72; Resp 18; Pulse Ox 99% on R/A; rs5 17:30 BP 120 / 77; Pulse 78; Resp 18; Pulse Ox 99% on R/A; rs5 18:00 BP 138 / 89; Pulse 75; Resp 18; Pulse Ox 99% on R/A; rs5 18:33 BP 132 / 84; Pulse 74; Resp 17; Pulse Ox 99% on R/A; rs5 16:52 Body Mass Index 32.82 (109.77 kg, 182.88 cm) hb 16:52 Pain Scale: Adult hb MDM: 16:47 Patient medically screened. francine 19:08 ED course: spoke with DR Amador and 5.8 cm by 3.3 cm structure mentioned on CT cp appears to be small bowel. 19:30 Differential diagnosis: hemorrhoids, hemorrhagic shock. Data reviewed: vital signs, cp nurses notes, lab test result(s), EKG, radiologic studies, CT scan, plain films. Management of patient was discussed with the following: Handle Bar Assembler: Antione Bennett, BUILDING INSPECTION ENGINEER will admit after discussion. I considered the following discharge prescriptions or medication management in the emergency department Medications were administered in the Emergency Department. See MAR. Independent interpretation of the following test(s) in the Emergency Department EKG: See my EKG interpretation above. Counseling: I had a detailed discussion with the patient and/or guardian regarding the historical points, exam findings, and any diagnostic results supporting the discharge/admit diagnosis, lab results, radiology results, the need for further work-up and treatment in the hospital. Response to treatment: the patient's symptoms have mildly improved after treatment. 04/04 16:54 Order name: Basic Metabolic Panel; Complete Time: 17:39 04/04 17:40 Interpretation: Normal except: CL 110; GLUC 143; CRE 1.42; GFR 62. 04/04 16:54 Order name: CBC with Diff; Complete Time: 17:39 04/04 16:54 Order name: LFT's; Complete Time: 17:39 04/04 18:00 Interpretation: Normal except: AST 14. 04/04 16:54 Order name: NT PRO-BNP; Complete Time: 17:39 04/04 16:54 Order name: PT-INR; Complete Time: 17:30 04/04 17:30 Interpretation: Reviewed. 04/04 16:54 Order name: Troponin HS; Complete Time: 17:39 04/04 16:54 Order name: Type And Screen; Complete Time: 18:50 04/04 16:54 Order name: Ptt, Activated; Complete Time: 17:30 04/04 18:22 Interpretation: Reviewed. 04/04 19:23 Order name: Hemoglobin; Complete Time: 20:10 04/04 19:23 Order name: Hematocrit; Complete Time: 20:10 04/04 19:30 Order name: Lactate w/ 2H reflex if indic.; Complete Time: 20:10 04/04 19:30 Order name: Blood Culture Adult (2) 04/04 16:54 Order name: XRAY Chest (1 view); Complete Time: 17:30 04/04 17:30 Interpretation: Report review. 04/04 17:40 Order name: CT Abd/Pelvis - IV Contrast Only; Complete Time: 18:50 04/04 19:08 Interpretation: Report reviewed. 04/04 16:54 Order name: EKG; Complete Time: 16:55 04/04 16:54 Order name: Cardiac monitoring; Complete Time: 17:28 04/04 16:54 Order name: EKG - Nurse/Tech; Complete Time: 18:28 04/04 16:54 Order name: IV Saline Lock; Complete Time: 17:28 04/04 16:54 Order name: Labs collected and sent; Complete Time: 17:28 04/04 16:54 Order name: O2 Per Protocol; Complete Time: 17:28 04/04 16:54 Order name: O2 Sat Monitoring; Complete Time: 17:28 04/04 16:59 Order name: IV; Complete Time: 17:28 04/04 17:17 Order name: Labs - recollect needed: Type \T\ Screen; Complete Time: 17:28 hb Administered Medications: 17:29 Drug: NS 0.9% IV 1000 ml Route: IV; Rate: 1 bolus; Site: right antecubital; rs5 18:30 Follow up: IV Status: Completed infusion iw 17:29 Drug: NS 0.9% IV 1000 ml Route: IV; Rate: 1 bolus; Site: right antecubital; rs5 18:30 Follow up: IV Status: Completed infusion iw 18:38 Drug: NS 0.9% IV 1000 ml Route: IV; Rate: 100 ml/hr; Site: left antecubital; aa5 20:32 Follow up: IV Status: Infusion continued upon admission iw Disposition Summary: 04/04/23 19:29 Hospitalization Ordered Hospitalization Status: Inpatient Admission cp Provider: Judd Avelar cp Location: Telemetry/MedSur (Inpatient) cp Condition: Stable cp Problem: new cp Symptoms: have improved cp Bed/Room Type: Standard cp Room Assignment: 207(04/04/23 20:07) cg Diagnosis - GI Bleed/ Gastrointestinal hemorrhage, unspecified cp Forms: - Medication Reconciliation Form cp - SBAR form cp - Leadership Thank You Letter cp Signatures: Dispatcher [employer] EDMS Fortunato Vincent MD MD cha Calderon, Audri RN RN aa5 Fortunato Whitt PA PA cp Garcia, Cindy, RN RN Arielle Chilel RN RN Anthony Temple RN RN rs5 Karey Gupta RN iw Corrections: (The following items were deleted from the chart) 19:10 19:08 ED course: spoke with DR Amador and . [facility] : 19:29 [facility] 04/05 19:04/04 19:10 Data reviewed: vital signs, nurses notes, lab test result(s), EKG, cp radiologic studies, CT scan, plain films, 04/05 19:04/04 19:10 Management of patient was discussed with the following: Handle Bar Assembler: Antione Bennett, BUILDING INSPECTION ENGINEER will admit after discussion. 04/05 19:04/04 19:10 I considered the following discharge prescriptions or medication management cp in the emergency department Medications were administered in the Emergency Department. See [facility] 04/05 19:04/04 19:10 Independent interpretation of the following test(s) in the Emergency cp Department EKG: See my EKG interpretation above 04/05 19:04/04 19:10 Counseling: I had a detailed discussion with the patient and/or guardian cp regarding the historical points, exam findings, and any diagnostic results supporting the discharge/admit diagnosis, lab results, radiology results, the need for further work-up and treatment in the hospital, 04/05 19:04/04 19:10 Response to treatment: the patient's symptoms have mildly improved after cp treatment, 04/05 19:04/04 19:10 Differential diagnosis: hemorrhoids, hemorrhagic shock, cp cp
[2023-04-04 19:53] LABS: Hematocrit 44.4 % (39.6-49.0)
--- NOTE | 2023-04-04 20:17 | P.HP ---
Certification for Inpatient Patient admitted to: Observation With expected LOS: <2 Midnights Patient will require the following post-hospital care: None Practitioner: I am a practitioner with admitting privileges, knowledge of patient current condition, hospital course, and medical plan of care. Services: Services provided to patient in accordance with Admission requirements found in Title 42 Section 412.3 of the Code of Federal Regulations Patient History Date of Service: 04/04/23 Reason for admission: Hematochezia History of Present Illness: 47-year-old male with history of hypertension presents to the emergency department chief complaint of hematochezia. He had a colonoscopy performed with Dr. Stevens on 04/03/2023 with polypectomy. Today he began having hematochezia, he had 3 episodes of bright red blood per rectum prior to arrival to the emergency department had 2 additional episodes in the emergency department. In the ER he was evaluated his initial hemoglobin was 16.3 other labs unremarkable, he was given 2 L IV fluids, his recheck hemoglobin 2 and half hours later is 15.1. ED provider wishes to admit under observation for hematochezia. Allergies Penicillins Allergy (Verified 04/03/23 09:20) Hives Home Medications: Anastrozole 1 mg PO SEECOM 10/10/20 Ascorbic Acid [Vitamin C] 500 mg PO DAILY 10/10/20 Atomoxetine HCl [Strattera] 18 mg PO DAILY 10/10/20 Cartilage/Collagen/Bor/Hyalur [Joint Health Tablet] 1 each PO DAILY 10/10/20 Cholecalciferol (Vitamin D3) [Vitamin D3] 2,000 unit PO DAILY 10/10/20 Losartan Potassium 100 mg PO DAILY 10/10/20 Sertraline HCl 50 mg PO DAILY 10/10/20 Zinc 50 mg PO DAILY 10/10/20 Aspirin [Aspirin Regimen] 1 tab PO DAILY 03/09/23 Atenolol [Tenormin] 100 mg PO DAILY 03/09/23 Cetirizine HCl [Zyrtec] 10 mg PO DAILY 03/09/23 Mecobalamin [B12 Active] 1 tab PO DAILY 03/09/23 Testosterone Cypionate [Testone Cik] 180 mg IM SEECOM 03/09/23 - Past Medical/Surgical History -: Hypertension -: Hernia repair x3 Psychosocial/ Personal History: Lives at home with his - Social History Smoking Status: Current some day smoker Counseled patient to stop smoking for: less than 10 minutes Alcohol use: Yes CD- Drugs: No Caffeine use: No Place of Residence: Home Review of Systems 10-point ROS is otherwise unremarkable Gastrointestinal: Hematochezia Physical Examination - Physical Exam General: Alert, In no apparent distress, Oriented x3 HEENT: Atraumatic, PERRLA, Mucous membr. moist/pink, EOMI, Sclerae nonicteric Neck: Supple, 2+ carotid pulse no bruit, No LAD, Without JVD or thyroid abnormality Respiratory: Clear to auscultation bilaterally, Normal air movement Cardiovascular: Regular rate/rhythm, Normal S1 S2 Gastrointestinal: Normal bowel sounds, No tenderness Musculoskeletal: No tenderness Integumentary: No rashes Neurological: Normal gait, Normal speech, Normal strength at 5/5 x4 extr, Normal tone, Normal affect Lymphatics: No axilla or inguinal lymphadenopathy - Studies Laboratory Data (last 24 hrs) 04/04/23 04/04/23 04/04/23 19:34 17:05 17:05 WBC 7.50 Hgb 15.1 16.3 Hct 44.4 48.3 Plt Count 258 PT 10.0 INR 0.91 APTT 29.0 Sodium Potassium BUN Creatinine Glucose Total Bilirubin AST ALT Alkaline Phosphatase 04/04/23 17:05 WBC Hgb Hct Plt Count PT INR APTT Sodium 141 Potassium 4.2 BUN 13 Creatinine 1.42 H Glucose 143 H Total Bilirubin 0.5 AST 14 L ALT 28 Alkaline Phosphatase 91 Assessment and Plan - Plan Assessment: Hematochezia S/P colonoscopy with polypectomy 04/03/2023 Hypertension Plan: Hematochezia S/P colonoscopy with polypectomy 04/03/2023 ED provider discussed case with general surgery, will observe overnight trend H&H. Still with ongoing hematochezia. No significant drop in hemoglobin thus far. Continue to monitor. Hypertension Continue home medications when appropriate. DVT PPX: SCD Code status: Full Discharge Plan: Home Plan to discharge in: 24 Hours - Advance Directives Does patient have a Living Will: No Does patient have a Durable POA for Healthcare: Yes - Code Status/Comfort Care Code Status Assessed: Yes (Full code) Critical Care: No Time Spent Managing Pts Care (In Minutes): 55
[2023-04-04] MEDS ORDERED: CIPROFLOXACIN 400mg IV 400 MG/200 ML BAG IV ONE (20:29)
[2023-04-04] MEDS ORDERED: METRONIDAZOLE 500mg IVPB 500 MG/100 ML BAG IV ONE (20:29)
[2023-04-04] MEDS: NA CHLORIDE 0.9% 1,000 ML IV SCH (20:49)
[2023-04-04] MEDS ORDERED: ONDANSETRON 4 MG/2 ML VIAL IV PRN (20:49)
[2023-04-04] MEDS ORDERED: MORPHINE 2 MG/ML SYR IV PRN (20:49)
[2023-04-04 21:51] VITALS: O2SAT 99
[2023-04-04 22:35] VITALS: BMI 32.4
[2023-04-05 03:43] LABS: Absolute Lymphocytes (CBC) 1.9 K/uL (0.7-4.9); Hematocrit 40.9 % (39.6-49.0); Lymphocytes % 23.6 % (15.3-44.8); MCV 91.8 fL (80-100); MPV 8.5 fL (7.6-11.3); Platelets 187 thou/uL (152-406); RBC Red Blood Cell Count 4.45 M/uL (4.33-5.43)
[2023-04-05 03:55] LABS: Potassium 3.8 mEq/L (3.5-5.1)
[2023-04-05] MEDS: NA CHLORIDE 0.9% 1,000 ML IV SCH (05:11)
[2023-04-05] MEDS ORDERED: KCL 20 MEQ/100 mL IVPB 20 MEQ/100 ML BAG IV SCH (06:00)
[2023-04-05 09:01] VITALS: BP 127/82; TEMP 97.1
--- NOTE | 2023-04-05 13:25 | P.DS ---
Admission Date: 04/04/23 Discharge Date: 04/05/23 Disposition: ROUTINE DISCHARGE Discharge Condition: GOOD Reason for Admission: Hematochezia Consultations: 1. 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 Eliceo Hamilton is a 47 year old male with a past medical history significant for hypertension who was admitted to the [facility] on 04/04/2023 for hematochezia. He was admitted to the Medicine service. Upon further evaluation, his CT abdomen/pelvis revealed, "no acute abnormality is displayed." He states that, prior to presentation, he had a routine screening colonoscopy with Dr. Stevens on 04/03/2023. During the procedure, a large cecal polyp was removed. Since yesterday, he reports having 4-6 [address] bowel movements. Dr[address] Stevens was consulted and evaluated him in the hospital. Since his hemoglobin stabilized and his hematochezia has not recurred here, he has cleared him for discharge with outpatient follow-up. Incidentally, his CT scan revealed a "5.8 x 3.3 centimeter fluid-filled structure present within the anterior right abdomen below the level of kidneys most likely represents an atonic loop of small bowel status post small bowel surgery." I reviewed this with Dr. Stevens, who stated that this is an expected post-operative finding. In regards to his lumbar spine findings, he denied any neurologic symptoms. He specifically denied any saddle anesthesia, lower extremity weakness, or urinary/bowel incontinence. I reviewed these findings with Dr. Edmondson, who stated that he can be discharged with outpatient follow- up. On 04/05/2023, he was seen on rounds and deemed medically stable for discharge. He was discharged with instructions to schedule follow-up appointments with his PCP (Dr. Abbasi), with Neurology (Dr. Edmondson), and with General Surgery (Dr. Stevens). He was given the opportunity to ask questions and reported no further questions. Furthermore, all questions were answered to the best of my ability. A copy of this discharge summary will be sent to the above providers to facilitate continuity of care. Today, I personally spent 25 minutes on his case, of which greater than 50% of the time was spent in patient education, counseling, and coordination of care as described above. Vital Signs/Physical Exam: Temp Pulse Resp BP Pulse Ox 97.1 F 81 18 127/82 99 04/05/23 08:00 04/05/23 08:00 04/05/23 08:00 04/05/23 08:00 04/05/23 08:00 General: Alert, In no apparent distress, Oriented x3 HEENT: Atraumatic, Mucous membr. moist/pink, Sclerae nonicteric Neck: JVD not distended Respiratory: Clear to auscultation bilaterally, Normal air movement Cardiovascular: No edema, Regular rate/rhythm, Normal S1 S2, No gallops, No rubs, No murmurs Gastrointestinal: Normal bowel sounds, Soft and benign, Non-distended, No tenderness, No rebound, No guarding Musculoskeletal: No clubbing Integumentary: No rashes Neurological: Normal gait, Normal speech, Normal strength at 5/5 x4 extr, Normal tone, Sensation intact, Normal reflexes 2+, Normal affect Laboratory Data at Discharge: WBC 7.90 thou/uL (4.3-10.9) 04/05/23 03:17 Hgb 14.8 g/dL (13.6-17.9) 04/05/23 12:35 Hct 44.0 % (39.6-49.0) 04/05/23 12:35 Plt Count 187 thou/uL (152-406) D 04/05/23 03:17 PT 10.0 SECONDS (9.5-12.5) 04/04/23 17:05 INR 0.91 04/04/23 17:05 APTT 29.0 SECONDS (24.3-36.9) 04/04/23 17:05 Sodium 139 mEq/L (136-145) 04/05/23 03:17 Potassium 3.8 mEq/L (3.5-5.1) 04/05/23 03:17 BUN 12 mg/dL (7-18) 04/05/23 03:17 Creatinine 1.09 mg/dL (0.70-1.30) 04/05/23 03:17 Glucose 105 mg/dL (74-106) 04/05/23 03:17 Total Bilirubin 0.5 mg/dL (0.2-1.0) 04/04/23 17:05 AST 14 U/L (15-37) L 04/04/23 17:05 ALT 28 U/L (16-61) 04/04/23 17:05 Alkaline Phosphatase 91 U/L (45-117) 04/04/23 17:05 Home Medications: Anastrozole 1 mg PO EVERY 7TH DAY 10/10/20 Ascorbic Acid [Vitamin C*] 100 mg PO DAILY 10/10/20 Atomoxetine HCl [Strattera] 80 mg PO DAILY 10/10/20 Cartilage/Collagen/Bor/Hyalur [Joint Health Tablet] 1 each PO DAILY 10/10/20 Cholecalciferol (Vitamin D3) [Vitamin D3] 5,000 unit PO DAILY 10/10/20 Losartan Potassium 100 mg PO DAILY 10/10/20 Sertraline HCl 50 mg PO DAILY 10/10/20 Zinc 60 mg PO DAILY 10/10/20 Atenolol [Tenormin] 100 mg PO DAILY 03/09/23 Cetirizine HCl [Zyrtec] 10 mg PO DAILY 03/09/23 Mecobalamin [B12 Active] 1 tab PO DAILY 03/09/23 Testosterone Cypionate [Testone Cik] 180 mg IM EVERY 7TH DAY 03/09/23 Magnesium Maltate 1 tab PO DAILY 04/04/23 Vitamin K2 100 mcg PO DAILY 04/04/23 Physician Discharge Instructions: 1. Please call and schedule a follow-up appointment with your PCP (Dr. Abbasi) in 3-5 days 2. Please call and schedule a follow-up appointment with General Surgery (Dr. Stevens) in 5-7 days 3. Please call and schedule a follow-up appointment with Neurology (Dr. Edmondson) in 5-7 days - Please discuss your lower back symptoms with him. He will schedule you for an MRI in his clinic. Medication changes: 1. Please stop taking aspirin until your see Dr. Stevens Please follow-up with your PCP for medication adjustments Diet: Regular Activity: Ad marleen Followup: Bon Abbasi MD [ACTIVE - CAN ADMIT] - Giorgio Stevens MD [ACTIVE - CAN ADMIT] - Jeremiah Edmondson MD [ASSOCIATE-ACTIVE - CAN ADMIT] - Time spent managing pt's care (in minutes): 25
--- NOTE | 2023-04-06 19:08 | EKG ---
Test Date: 2023-04-04 Test Time: 17:37:31 Nut Sorter Operator: KARINA MEASUREMENT RESULTS: Intervals: Rate: 75 AR: 176 QRSD: 84 QT: 372 QTc: 415 [place]: P: 58 AR: 176 QRS: 43 T: 60 INTERPRETIVE STATEMENTS: Normal sinus rhythm Nonspecific T wave abnormality Abnormal ECG Compared to ECG 10/14/2022 19:46:34 T-wave abnormality now present Electronically Signed On 04-06-23 19:05:20 CDT by Sourav Christie
== END 2023-04-05 13:58 | disposition home or self-care (01) ==
LOC: ER 16:41 → ERHOLD 19:57 → 2ND 20:26
PROVIDERS: ADMIT Internal Medicine; ATTEND Internal Medicine
DX: K91.840 Postprocedural hemorrhage of a digestive system organ or structure following a digestive system procedure (principal); K92.1 Melena; I10 Essential (primary) hypertension; M47.897 Other spondylosis, lumbosacral region; Y83.8 Other surgical procedures as the cause of abnormal reaction of the patient, or of later complication, without mention of misadventure at the time of the procedure; Z86.010 Personal history of colon polyps; Z88.0 Allergy status to penicillin; Z98.890 Other specified postprocedural states
CPT/HCPCS: 96361; 93005; 87040 ×2; 85025 ×2; 80048 ×2; 36415; 86900; 86850; 85610; 86901; 80076; 83605; 85730; 85018 ×2; 85014 ×2; 84484; 83880; 74177; 71045; 96360; 99285; Q9967; J3480; J0744; J7030 ×3; G0378 ×3

== ENCOUNTER 2024-07-15 13:06 | Emergency (ER) | payer OTHER ==
--- OUTSIDE RECORDS SUMMARY | 2024-07-15 13:10 | XMS REPORT | Continuity of Care Document ---
Author Name Unknown Address [address] 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 Name Role Phone Adrian Garza Attending Clinician Unavailable Angie Parikh Attending Clinician Unavailable Payers Payer Name Policy Type Policy Number Effective Date Expirati on Date Source [employer] 53 [id number] 2023 00:00:00 [facility] Problems Condition Name Condition Details Condition Category Status Onset Date Resolution Date Last Treatment Date Treating Clinician Comments Source [id number] Anxiety, generalize d Problem [facility] [id number] Essential hypertensi on Problem [facility] [id number] Mixed hyperlipid emia Problem [facility] [id number] Adult ADHD Problem Com mon [facility] [id number] Paresthesi a of skin Problem [facility] [id number] Morbid (severe) obesity due to excess calories Problem Common [facility] Neck pain Neck pain Problem Comm on [facility] [id number] Seasonal allergies Problem [facility] [id number] Degenerati ve cervical disc Problem [facility] [id number] Tobacco use disorder Problem Common [facility] [id number] Body mass index [BMI] 36.0-36.9, adult Problem [facility] [id number] Non-season al allergic rhinitis, unspecifie d trigger Problem [facility] Allergies, Adverse Reactions, Alerts Allergy Name Allergy Type Status Severity Reaction(s) Onset Date Inactive Date Treating Clinician Comments Source [id number] Drug allergy Active Unknown [facility] Social History Social Habit Start Date Stop Date Quantity Comments Source History of Tobacco Use Current Smoker [facility] Sex Assigned At [facility] Smoking Status Start Date Stop Date Source Current Smoker 2024-05-24 00:00:00 [facility] Medications Ordered Medication Name Filled Medication Name Start Date Stop Date Current Medication? Ordering Clinician Indication Dosage Frequency Signature (SIG) Comments Components Source Vitamin C 500 MG Vitamin C 500 MG No 1{table t} QD Vitamin C 500 MG Atomoxetine HCl 100 MG Atomoxetine HCl 100 MG No 1{capsu le_in_t he_morn ing} QD Atomoxetin e HCl 100 MG Anastrozole 1 MG Anastrozole 1 MG No 1{table t} QD Anastrozol e 1 MG Sertraline HCl 50 MG Sertraline HCl 50 MG No 1{table t} QD Sertraline HCl 50 MG Atenolol 100 MG Atenolol 100 MG No 1{table t} QD Atenolol 100 MG Zinc Zinc No 1{table t} QD Zinc ZyrTEC 10 MG ZyrTEC 10 MG No 1{table t} QD ZyrTEC 10 MG Losartan Potassium-H CTZ 100-12.5 MG Losartan Potassium-H CTZ 100-12.5 MG No 1{table t} QD Losartan Potassium- HCTZ 100-12.5 MG Tadalafil 5 MG Tadalafil 5 MG No 1{table t} QD Tadalafil 5 MG Atomoxetine HCl 80 MG Atomoxetine HCl 80 MG No 1{capsu le_in_t he_morn ing} QD Atomoxetin e HCl 80 MG Vital Signs Vital Name Observation Time Observation Value Comments S ource height 2024-05-24 09:00:00 71.00 [in_i] Com mon [facility] weight 2024-05-24 09:00:00 255.8 [lb_av] Co mmon [facility] temperature 2024-05-24 09:00:00 97.6 [degF] Com [facility] bmi 2024-05-24 09:00:00 35.67 kg/m2 Comm on [facility] oximetry 2024-05-24 09:00:00 99 % Commo n [facility] blood pressure systolic 2024-05-24 09:00:00 144 mm[Hg] Common [facility] blood pressure diastolic 2024-05-24 09:00:00 76 mm[Hg] [facility] weight 2024-02-01 13:50:00 252.6 [lb_av] Co [facility] temperature 2024-02-01 13:50:00 97.6 [degF] Com [facility] bmi 2024-02-01 13:50:00 35.23 kg/m2 Comm on [facility] oximetry 2024-02-01 13:50:00 97 % Commo n [facility] blood pressure systolic 2024-02-01 13:50:00 142 mm[Hg] Common [facility] blood pressure diastolic 2024-02-01 13:50:00 74 mm[Hg] [facility] height 2024-02-01 13:50:00 71.00 [in_i] Com [facility] height 2024-01-11 08:00:00 71.00 [in_i] Com [facility] weight 2024-01-11 08:00:00 261.4 [lb_av] Co [facility] temperature 2024-01-11 08:00:00 97.6 [degF] Com [facility] bmi 2024-01-11 08:00:00 36.45 kg/m2 Comm on [facility] oximetry 2024-01-11 08:00:00 98 % Commo n [facility] blood pressure systolic 2024-01-11 08:00:00 160 mm[Hg] [facility] blood pressure diastolic 2024-01-11 08:00:00 78 mm[Hg] [facility] height 2023-09-16 08:20:00 71.00 [in_i] Com mon [facility] weight 2023-09-16 08:20:00 259.0 [lb_av] Co mmon [facility] temperature 2023-09-16 08:20:00 97.2 [degF] Com [facility] bmi 2023-09-16 08:20:00 36.12 kg/m2 Comm on [facility] oximetry 2023-09-16 08:20:00 100 % Commo n [facility] respiratory rate 2023-09-16 08:20:00 18 /min [facility] blood pressure systolic 2023-09-16 08:20:00 162 mm[Hg] [facility] blood pressure diastolic 2023-09-16 08:20:00 90 mm[Hg] [facility] Encounters Start Date/Time End Date/Time Encounter Type Admission Type Attending [facility] Facility Care Department Encounter ID Source 2024-05-09 11:45:00 Outpatient Greg Adrian STLMLC STLMLC [id number] [facility] 2024-01-08 10:00:01 Outpatient Greg Adrian STLMLC STL[facility] [id number] [facility] 2024-01-07 14:36:00 Outpatient Angie Parikh STLMLC STL[facility] [id number] [facility] 2023-10-01 08:01:00 Outpatient Angie Parikh STLMLC STL[facility]C [id number] [facility] 2023-09-16 08:27:00 Outpatient Angie Parikh STLMLC STLMLC [id number] [facility] 2024-05-24 00:00:00 2024-05-24 00:00:00 OFFICE VISIT ESTAB PT LEVEL 4 STLMLC STLMLC [id number] [facility] 2024-05-10 00:00:00 2024-05-10 00:00:00 (TEL) STLMLC STLMLC [id number] [facility] 2024-03-22 00:00:00 2024-03-22 00:00:00 (TEL) STLMLC STLMLC [id number] [facility] 2024-02-16 00:00:00 2024-02-16 00:00:00 (TEL) STLMLC STLMLC [id number] [facility] 2024-02-01 00:00:00 2024-02-01 00:00:00 OFFICE VISIT ESTAB PT LEVEL 4 STLMLC STLMLC [id number] [facility] 2024-01-11 00:00:00 2024-01-11 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
[2024-07-15] MEDS ORDERED: DICYCLOMINE HCL 20 MG/2 ML AMP IM ONE (13:45)
[2024-07-15] MEDS ORDERED: NA CHLORIDE 0.9% 1,000 ML ONE (13:45)
[2024-07-15] MEDS ORDERED: ONDANSETRON 4 MG/2 ML VIAL ONE (13:45)
[2024-07-15 13:57] LABS: Absolute Lymphocytes (CBC) 1.1 K/uL (0.7-4.9); Absolute Monocytes 0.9 K/uL (0.1-1.3); Absolute Neutrophil 2.8 K/uL (1.8-8.0); Basophils % 0.7 % (0-1.3); Eosinophils % 0.9 % (0-4.4); Hematocrit 56.4 % (39.6-49.0); Hemoglobin 18.6 g/dL (13.6-17.9); Lymphocytes % 21.9 % (15.3-44.8); MCH 30.8 pg (27.0-35.0); MCHC 32.9 g/dL (32.0-36.0); MCV 93.4 fL (80-100); MPV 8.3 fL (7.6-11.3); Monocytes % 17.8 % (3.3-12.3); Neutrophils % 58.7 % (41.7-73.7); Platelets 186 thou/uL (152-406); RBC Red Blood Cell Count 6.05 M/uL (4.33-5.43); Red Cell Distribution Width 15.3 % (12.1-15.2)
[2024-07-15 14:00] LABS: Specific Gravity < 1.005 (1.005-1.030); Sqamous Epithelial None Seen /HPF (None Seen); Urine Bacteria None Seen /HPF (<20); Urine Bilirubin NEGATIVE (Negative); Urine Blood Negative (Negative); Urine Clarity Clear (Clear); Urine Color Colorless (Yellow); Urine Culture Reflex Order NOT NEEDED; Urine Glucose NEGATIVE (Negative); Urine Ketones NEGATIVE (Negative); Urine Microscopic Reflex YN ORDER UMIC; Urine Nitrite NEGATIVE (Negative); Urine Protein NEGATIVE (Negative); Urine RBC None Seen /HPF (None Seen); Urine Urobilinogen Normal (Normal); Urine WBC None Seen /HPF (<5)
[2024-07-15 14:12] LABS: Albumin 3.4 g/dL (3.4-5.0); Albumin/Globulin Ratio 0.9 (1.1-1.8); Anion Gap 6.3 mEq/L (5.0-15.0); Bilirubin Total 0.7 mg/dL (0.2-1.0); Globulin 3.7 g/dL (2.3-3.5); Magnesium 2.2 mg/dL (1.6-2.4); Potassium 3.3 mEq/L (3.5-5.1); Protein, Total 7.1 g/dL (6.4-8.2)
[2024-07-15 15:14] LABS: C.diff Antigen/Toxin Ag neg : Tox neg (NEG : NEG); CDIFF INTERNAL NEG CONTROL White Background (WHITE BKGD); STOOL CONSISTENCY Formed/Solid (soft)
--- NOTE | 2024-07-15 16:01 | RAD REPORT ---
EXAM: CT Head Brain Wo Cont HISTORY: DIZZINESS, HEADACHE, BLOOD PRESSURE COMPARISON: 10/14/2022 TECHNIQUE: Multiple contiguous axial images were obtained for a CT of the brain without contrast. Sag ittal and coronal reformats were performed. One or more of the following dose reduction techniques were used: Automated exposure control, adjus tment of the mA and kV according to patient size, and iterative reconstruction. Unless otherwise specified, incidental findings do not require dedicated imaging follow-up. FINDINGS: No evidence of hydrocephalus, intracranial hemorrhage, or extra-axial fluid collection. The brain is normal in morphology. The calvarium is intact. The visualized paranasal sinuses and mastoid air cells are essentially clear . IMPRESSION: No evidence of acute intracranial abnormality.
--- NOTE | 2024-07-15 16:17 | RAD REPORT ---
EXAMINATION: CT Abdomen Pelvis W Contrast CLINICAL INDICATION: Male, 48 years old. ABD PAIN TECHNIQUE: CT abdomen and pelvis was performed, after the administration of IV contrast, [facility]. Axial, sagittal and coronal reconstructions were obtained. One or more of the following dose reduction techniques were used: Automated exposure control, adjustment of the mA and k V according to patient size, and iterative reconstruction. Unless otherwise specified, incidental findings do not require dedicated imaging follow-up. COMPARISON: 04/04/2023. FINDINGS: LOWER CHEST: The visualized lung bases are clear. LIVER: Mild fatty liver is present. No focal lesion or biliary dilataion is seen. BILIARY SYSTEM: No suspicious abnormalities. SPLEEN: Normal size. No focal lesion. PANCREAS: No mass, ductal dilation, or lesley-pancreatic fluid. ADRENALS: Normal; no mass. KIDNEYS: Normal size and contour. No hydronephrosis. URINARY BLADDER: Unremarkable. GASTROINTESTINAL TRACT: Sequelae of small bowel resection with anastomotic suture lines in the right hemiabdomen. Fluid opacification of nondistended small bowel, nonspecific No evidence of free air, significant intra-abdominal free fluid, bowel obstruction or abscess. APPENDIX: Normal appendix. LYMPH NODES: No lymphadenopathy. MUSCULOSKELETAL: Grade 1 spondylolisthesis at L5-S1 again seen. No acute or suspicious osseous abnorm ality. ADDITIONAL FINDINGS: Diastasis recti. Small supraumbilical right para midline ventral hernia containi ng nondistended loop of small bowel, see series 401 image 52. Prostatic calcifications present. IMPRESSION: Nonspecific fluid opacification throughout nondistended small bowel, may relate to mild enteritis or diarrheal state. Supraumbilical small hernia containing nondistended small bowel. Diffuse hepatic steatosis. No other acute or concerning abnormalities seen in the abdomen or pelvis.
[2024-07-15] MEDS ORDERED: POTASSIUM 25 MEQ EFFERV TAB ONE (16:30)
--- NOTE | 2024-07-15 16:45 | ER ---
Nurse's Notes [facility] Name: Eliceo Hamilton Age: 48 yrs Sex: Male : 1975 Arrival Date: 07/15/2024 Time: 13:06 Bed 14 Private MD: Diagnosis: Diarrhea, unspecified;Hypertensive heart disease without heart failure;Volume depletion, unspecified Presentation: 07/15 13:25 Chief complaint: Patient states: HIGH BP AT HOME 181/124 TAKING BP MEDICATIONS rs5 PRESCRIBED TAKES LOSARTAN AND ATENOLOL. DIARRHEA SINCE . Coronavirus screen: Client denies travel out of the [place] in the last 14 days. At this time, the client does not indicate any symptoms associated with coronavirus-19. Ebola Screen: Patient negative for fever greater than or equal to 101.5 degrees Fahrenheit, and additional compatible Ebola Virus Disease symptoms Patient denies exposure to infectious person. Patient denies travel to an Ebola-affected area in the 21 days before illness onset. No symptoms or risks identified at this time. Initial Sepsis Screen: Does the patient meet any 2 criteria? No. Patient's initial sepsis screen is negative. Does the patient have a suspected source of infection? No. Patient's initial sepsis screen is negative. Risk Assessment: Do you want to hurt yourself or someone else? Patient reports no desire to harm self or others. Onset of symptoms was July 15, 2024. 13:25 Method Of Arrival: Ambulatory rs5 13:25 Acuity: KITTY 3 rs5 Triage Assessment: 13:26 General: Appears in no apparent distress. comfortable, Behavior is calm, cooperative. rs5 Pain: Complains of pain in abdomen. Neuro: Level of Consciousness is awake, alert, obeys commands, Oriented to person, place, time, situation. Respiratory: Airway is patent Respiratory effort is even, unlabored, Respiratory pattern is regular, symmetrical. GI: Reports cramping, diarrhea. Historical: - Allergies: 13:26 PENICILLINS; rs5 - PMHx: 13:26 back problem (possible fracture); Hypertensive disorder; Anxiety; ATTENTION DEFICIT rs5 DISORDER; - PSHx: 13:26 hernia repair; Tonsillectomy; rs5 - Immunization history:: Adult Immunizations unknown. - Infectious Disease History:: Denies. - Social history:: Smoking status: Patient reports the use of cigarette tobacco products, cigars. Screenin:20 [facility] ED Fall Risk Assessment (Adult) History of falling in the last 3 months, rs5 including since admission No falls in past 3 months (0 pts) Confusion or Disorientation No (0 pts) Intoxicated or Sedated No (0 pts) Impaired Gait No (0 pts) Mobility Assist Device Used No (0 pt) Altered Elimination No (0 pt) Score/Fall Risk Level 0 - 2 = Low Risk Oriented to surroundings, Maintained a safe environment. 13:20 Abuse screen: Denies threats or abuse. Nutritional screening: No deficits noted. rs5 Tuberculosis screening: No symptoms or risk factors identified. Assessment: 13:18 General: Appears in no apparent distress. uncomfortable, Behavior is calm, cooperative. rs5 Pain: Complains of pain in abdomen Pain currently is 3 out of 10 on a pain scale. Quality of pain is described as aching, Is continuous. Neuro: Level of Consciousness is awake, alert, obeys commands, Oriented to person, place, time, situation. Cardiovascular: Patient's skin is warm and dry. Respiratory: Airway is patent Respiratory effort is even, unlabored, Respiratory pattern is regular, symmetrical. GI: Abdomen is round non-distended, Abd is soft and non tender X 4 quads. Reports diarrhea. 13:18 : No signs and/or symptoms were reported regarding the genitourinary system. EENT: No rs5 signs and/or symptoms were reported regarding the EENT system. Derm: Skin is intact, Skin is pink, warm \T\ dry. Musculoskeletal: Range of motion: intact in all extremities. 14:49 Reassessment: Patient and/or family updated on plan of care and expected duration. Pain rs5 level reassessed. Patient is alert, oriented x 3, equal unlabored respirations, skin warm/dry/pink. 16:01 Reassessment: Patient and/or family updated on plan of care and expected duration. Pain rs5 level reassessed. Patient is alert, oriented x 3, equal unlabored respirations, skin warm/dry/pink. 17:00 Reassessment: Patient and/or family updated on plan of care and expected duration. Pain rs5 level reassessed. Patient is alert, oriented x 3, equal unlabored respirations, skin warm/dry/pink. Vital Signs: 13:25 BP 143 / 104; Pulse 91; Resp 18; Temp 98.1(O); Pulse Ox 100% ; rs5 14:50 BP 135 / 88; Pulse 84; Resp 17; Pulse Ox 99% on R/A; rs5 17:00 BP 142 / 90; Pulse 80; Resp 17; Pulse Ox 99% on R/A; rs5 ED Course: 13:09 Patient arrived in ED. im 13:13 Fortunato Whitt PA is PHCP. cp 13:13 Fortunato Vincent MD is Attending Physician. cp 13:20 Patient has correct armband on for positive identification. Placed in gown. Bed in low rs5 position. Call light in reach. Side rails up X2. 13:20 No provider procedures requiring assistance completed. rs5 13:26 Triage completed. rs5 13:26 Arm band placed on Patient placed in an exam room. rs5 13:38 Anthony Temple, RN is Primary Nurse. rs5 14:07 Magnesium Sent. nh2 14:07 CMP Sent. nh2 14:07 Lipase Sent. nh2 14:07 Inserted saline lock: 20 gauge in right antecubital area, using aseptic technique. nh2 Blood collected. Flushed with 10 mL NS. 14:40 CT Abd/Pelvis - IV Contrast Only In Process Unspecified. EDMS 14:40 Head Brain Wo Cont In Process Unspecified. EDMS 17:00 Provided Education on: discharge instructions . rs5 17:05 IV discontinued, intact, bleeding controlled, No redness/swelling at site. Pressure rs5 dressing applied. Administered Medications: 14:00 Drug: Ondansetron IVP 4 mg IVP once; over 2 minutes Route: IVP; Site: right antecubital;rs5 14:22 Follow up: Response: No adverse reaction; Nausea is decreased rs5 14:00 Drug: NS 0.9% IV 1000 ml IV at 1 bolus Per protocol; to be given as a bolus over 60 rs5 minutes Route: IV; Rate: 1 bolus; Site: right antecubital; 14:51 Follow up: Response: No adverse reaction; IV Status: Completed infusion; IV Intake: rs5 999ml 14:00 Drug: Dicyclomine IM 20 mg IM once Route: IM; Site: left deltoid; rs5 14:33 Follow up: Response: No adverse reaction rs5 16:21 CANCELLED (Physician Discretion): loperamide4 mg PO once cp 16:56 Drug: Potassium PO Effervescent Tablet 50 mEq PO once; dissolve in 4 ounces of water or rs5 juice Route: PO; Medication: 17:05 VIS not applicable for this client. rs5 Intake: 14:51 IV: 999ml; Total: 999ml. rs5 Outcome: 16:44 Discharge ordered by MD. cp 17:05 Discharged to home ambulatory, rs5 17:05 Condition: stable rs5 17:05 Discharge instructions given to patient, family, Instructed on discharge instructions, follow up and referral plans. medication usage, Demonstrated understanding of instructions, follow-up care, medications, Prescriptions given X 1, 17:10 Patient left the ED. rs5 Signatures: Dispatcher [employer] EDMS Fortunato Whitt PA PA cp Sotelo, Ricky RN RN rs5 [facility] Corrections: (The following items were deleted from the chart) 13:27 13:26 PMHx: ADHD (Tonsillectomy); rs5 rs5 17:31 17:22 BP 142 / 90; Pulse 80bpm; Resp 17bpm; Pulse Ox 99% RA; rs5 rs5
--- NOTE | 2024-07-15 16:45 | EDPHYS ---
Physician Documentation [facility] Name: Eliceo Hamilton Age: 48 yrs Sex: Male : 1975 Arrival Date: 07/15/2024 Time: 13:06 Bed 14 Private MD: ED Physician Fortunato Vincent HPI: 07/15 13:40 This 48 yrs old Male presents to ER via Ambulatory with complaints of High Blood cp Pressure, Dizziness, Diarrhea, Abdominal Pain. 13:40 The patient has elevated blood pressure and discovered this at home, with a home cp device. Onset: The symptoms/episode began/occurred today. 13:40 Severity of symptoms: At its worst the blood pressure was 181 mm Hg. cp 13:40 Associated signs and symptoms: Pertinent positives: dizziness, diarrhea for past 3 cp days, abdominal pain. Historical: - Allergies: 13:26 PENICILLINS; rs5 - PMHx: 13:26 back problem (possible fracture); Hypertensive disorder; Anxiety; ATTENTION DEFICIT rs5 DISORDER; - PSHx: 13:26 hernia repair; Tonsillectomy; rs5 - Immunization history:: Adult Immunizations unknown. - Infectious Disease History:: Denies. - Social history:: Smoking status: Patient reports the use of cigarette tobacco products, cigars. ROS: 13:45 Constitutional: Negative for fever, cp 13:45 Eyes: Negative for injury, pain, redness, and discharge, cp 13:45 Cardiovascular: Negative for chest pain, edema, 13:45 Respiratory: Negative for cough, shortness of breath, wheezing, 13:45 Abdomen/GI: Positive for abdominal pain, diarrhea, Negative for black/tarry stool, rectal bleeding, 13:45 : Negative for urinary symptoms, 13:45 Neuro: Positive for dizziness, Negative for altered mental status, numbness, weakness, Exam: 13:50 Constitutional: The patient appears in no acute distress, alert, awake, cp non-diaphoretic, non-toxic, well developed, well nourished, overweight 13:50 Head/Face: Normocephalic, atraumatic. cp 13:50 Eyes: Periorbital structures: appear normal, Conjunctiva: normal, no exudate, no injection, Sclera: no appreciated abnormality, Lids and lashes: appear normal, bilaterally, 13:50 ENT: External ear(s): are unremarkable, Nose: is normal, Mouth: Lips: moist, Oral mucosa: moist, Posterior pharynx: Airway: no evidence of obstruction, patent, 13:50 Chest/axilla: Inspection: normal, 13:50 Cardiovascular: Rate: normal, Rhythm: regular, Edema: is not appreciated, JVD: is not appreciated, 13:50 Respiratory: the patient does not display signs of respiratory distress, Respirations: normal, no use of accessory muscles, no retractions, labored breathing, is not present, Breath sounds: are clear throughout, no decreased breath sounds, no stridor, no wheezing, 13:50 Abdomen/GI: Inspection: abdomen appears normal, Bowel sounds: active, all quadrants, Palpation: soft, in all quadrants, mild abdominal tenderness, in the left upper quadrant and left lower quadrant, 13:50 Back: CVA tenderness, is absent, 13:50 Neuro: Orientation: to person, place \T\ time. Mentation: is normal, Cerebellar function: is grossly normal, Motor: moves all fours, strength is normal, Sensation: is normal, Vital Signs: 13:25 BP 143 / 104; Pulse 91; Resp 18; Temp 98.1(O); Pulse Ox 100% ; rs5 14:50 BP 135 / 88; Pulse 84; Resp 17; Pulse Ox 99% on R/A; rs5 17:00 BP 142 / 90; Pulse 80; Resp 17; Pulse Ox 99% on R/A; rs5 MDM: 13:19 Medical Screening Exam initiated cp 16:43 Data reviewed: vital signs, nurses notes, lab test result(s), radiologic studies, CT cp scan, and as a result, I will discharge patient. 16:43 Differential diagnosis: hypertensive crisis, Malignant HTN, CVA, intracerebral cp hemorrhage, diverticulitis, electrolyte abnormality. I considered the following discharge prescriptions or medication management in the emergency department Medications were administered in the Emergency Department. See MAR. Counseling: I had a detailed discussion with the patient and/or guardian regarding the historical points, exam findings, and any diagnostic results supporting the discharge/admit diagnosis, lab results, radiology results, to return to the emergency department if symptoms worsen or persist or if there are any questions or concerns that arise at home. Response to treatment: the patient's symptoms have markedly improved after treatment, and as a result, I will discharge patient. 07/15 13:36 Order name: CBC with Diff; Complete Time: 14:26 07/15 14:26 Interpretation: Normal except: RBC 6.05; HGB 18.6; HCT 56.4; RDW 15.3; MN% 17.8. 07/15 13:36 Order name: CMP; Complete Time: 14:26 07/15 14:26 Interpretation: Normal except: NA 134; K 3.3; GLUC 107; GFR 74; GLOB 3.7; A/G 0.9. 07/15 13:36 Order name: Lipase; Complete Time: 14:26 07/15 13:36 Order name: Urinalysis w/ reflexes; Complete Time: 14:26 07/15 14:27 Interpretation: Normal except: Urine SG < 1.005. 07/15 13:36 Order name: Magnesium; Complete Time: 14:26 07/15 13:36 Order name: Ova And Parasites 07/15 13:36 Order name: Rotavirus Antigen; Complete Time: 15:49 07/15 15:50 Interpretation: Reviewed. 07/15 13:36 Order name: Stool Culture 07/15 13:36 Order name: CDIFF; Complete Time: 15:49 07/15 15:50 Interpretation: Reviewed. 07/15 13:36 Order name: CT Abd/Pelvis - IV Contrast Only; Complete Time: 16:18 07/15 16:19 Interpretation: Report reviewed. 07/15 14:26 Order name: Head Brain Wo Cont; Complete Time: 16:18 EDMS 07/15 16:20 Interpretation: Report reviewed. 07/15 13:36 Order name: IV Saline Lock; Complete Time: 14:07 07/15 13:36 Order name: Labs collected and sent; Complete Time: 14:07 Administered Medications: 14:00 Drug: Ondansetron IVP 4 mg IVP once; over 2 minutes Route: IVP; Site: right antecubital;rs5 14:22 Follow up: Response: No adverse reaction; Nausea is decreased rs5 14:00 Drug: NS 0.9% IV 1000 ml IV at 1 bolus Per protocol; to be given as a bolus over 60 rs5 minutes Route: IV; Rate: 1 bolus; Site: right antecubital; 14:51 Follow up: Response: No adverse reaction; IV Status: Completed infusion; IV Intake: rs5 999ml 14:00 Drug: Dicyclomine IM 20 mg IM once Route: IM; Site: left deltoid; rs5 14:33 Follow up: Response: No adverse reaction rs5 16:21 CANCELLED (Physician Discretion): loperamide4 mg PO once cp 16:56 Drug: Potassium PO Effervescent Tablet 50 mEq PO once; dissolve in 4 ounces of water or rs5 juice Route: PO; Disposition Summary: 07/15/24 16:44 Discharge Ordered Notes: Location: Home cp Problem: new cp Symptoms: have improved cp Condition: Stable cp Diagnosis - Diarrhea, unspecified cp - Hypertensive heart disease without heart failure cp - Volume depletion, unspecified cp Followup: cp - With: Private Physician - When: 2 - 3 days - Reason: Worsening of condition Discharge Instructions: - Discharge Summary Sheet cp - Food Choices to Help Relieve Diarrhea, Adult cp - Dehydration, Adult cp - Diarrhea, Adult cp - Hypertension, Adult cp - Form - Blood Pressure Record Sheet cp - How to Take Your Blood Pressure cp Forms: - Medication Reconciliation Form cp - Antibiotic Education cp - Prescription Opioid Use cp - Patient Portal Instructions cp - Leadership Thank You Letter cp Prescriptions: - Zofran 4 mg Oral Tablet - take 1 tablet ORAL route every 12 hours As needed; 20 tablet; Refills: 0, cp Product Selection Permitted - dicyclomine 20 mg Oral tablet - take 1 tablet ORAL route 4 times per day; 30 tablet; Refills: 0, Product cp Selection Permitted Addendum: 07/18/2024 14:16 Co-signature as Attending Physician, Fortunato Vincent MD I agree with the assessment and c leon plan of care. Signatures: Dispatcher [employer] Fortunato Horne MD MD cha Page, Corey PA PA cp Anthony Temple, RN RN rs5 Corrections: (The following items were deleted from the chart) 07/15 13:27 13:26 PMHx: ADHD (Tonsillectomy); rs5 rs5 13:36 13:36 Abdomen Pelvis W Con+CT.RAD.BRZ ordered. EDMS EDMS 14:41 14:27 Head Brain Wo Cont+CT.RAD.BRZ ordered. EDMS EDMS 16:21 16:21 Loperamide PO 4 mg PO once ordered. cp cp 07/16 16:58 12/27 13:40 Associated signs and symptoms: Pertinent positives: dizziness, diarrhea for cp past 4 days, abdominal pain, cp
[2024-07-15 17:38] VITALS: BP 143/104; TEMP 98.1; O2SAT 100
== END 2024-07-15 17:10 | disposition home or self-care (01) ==
LOC: ER 13:06
DX: R19.7 Diarrhea, unspecified (principal); I11.9 Hypertensive heart disease without heart failure; E86.9 Volume depletion, unspecified; Z72.0 Tobacco use
CPT/HCPCS: 96361; 87045; 85025; 81001; 36415; 83735; 87177; 87046; 87209; 87324; 83690; 80053; 87425; 70450; 74177; 96372; 96374; 99284; Q9967; J0500; J2405; J7030

== ENCOUNTER 2024-07-17 16:35 | Emergency (ER) | payer OTHER ==
--- OUTSIDE RECORDS SUMMARY | 2024-07-17 16:38 | XMS REPORT | Continuity of Care Document ---
Author Name Unknown Address [address] [facility] [place] [address] [facility] thconnect Address [address] [facility] [address] [place] [address] Care Team Providers Care Quarantine Inspector Name Role Phone Adrian Garza Attending Clinician Unavailable Angie Parikh Attending Clinician Unavailable Payers Payer Name Policy Type Policy Number Effective Date Expirati on Date Source [employer] 53 [id number] 2023 00:00:00 [facility] Problems Condition Name Condition Details Condition Category Status Onset Date Resolution Date Last Treatment Date Treating Clinician Comments Source [id number] Anxiety, generalize d Problem [facility] [id number] Essential hypertensi on Problem [facility] [id number] Mixed hyperlipid emia Problem [facility] [id number] Adult ADHD Problem Com mon [facility] [id number] Paresthesi a of skin Problem [facility] [id number] Morbid (severe) obesity due to excess calories Problem Common [facility] Neck pain Neck pain Problem Comm on [facility] [id number] Seasonal allergies Problem [facility] [id number] Degenerati ve cervical disc Problem [facility] [id number] Tobacco use disorder Problem Common [facility] [id number] Body mass index [BMI] 36.0-36.9, adult Problem [facility] [id number] Non-season al allergic rhinitis, unspecifie d trigger Problem [facility] Allergies, Adverse Reactions, Alerts Allergy Name Allergy Type Status Severity Reaction(s) Onset Date Inactive Date Treating Clinician Comments Source [id number] Drug allergy Active Unknown [facility] Social History Social Habit Start Date Stop Date Quantity Comments Source History of Tobacco Use Current Smoker [facility] Sex Assigned At [facility] Smoking Status Start Date Stop Date Source Current Smoker 2024-07-15 00:00:00 [facility] Medications Ordered Medication Name Filled Medication Name Start Date Stop Date Current Medication? Ordering Clinician Indication Dosage Frequency Signature (SIG) Comments Components Source Losartan Potassium-H CTZ 100-12.5 MG Losartan Potassium-H CTZ 100-12.5 MG No 1{table t} QD Losartan Potassium- HCTZ 100-12.5 MG Tadalafil 5 MG Tadalafil 5 MG No 1{table t} QD Tadalafil 5 MG Atomoxetine HCl 80 MG Atomoxetine HCl 80 MG No 1{capsu le_in_t he_morn ing} QD Atomoxetin e HCl 80 MG Vitamin C 500 MG Vitamin C 500 MG No 1{table t} QD Vitamin C 500 MG Atomoxetine HCl 100 MG Atomoxetine HCl 100 MG No 1{capsu le_in_t he_morn ing} QD Atomoxetin e HCl 100 MG Levsin 0.125 MG Levsin 0.125 MG No 1{table t_as_ne eded} Levsin 0.125 MG Ciprofloxac in HCl 500 MG Ciprofloxac in HCl 500 MG No 1{table t} BID Ciprofloxa geneva HCl 500 MG metroNIDAZO LE 500 MG metroNIDAZO LE 500 MG No 1{table t} BID metroNIDAZ OLE 500 MG Anastrozole 1 MG Anastrozole 1 MG No 1{table t} QD Anastrozol e 1 MG Sertraline HCl 50 MG Sertraline HCl 50 MG No 1{table t} QD Sertraline HCl 50 MG Atenolol 100 MG Atenolol 100 MG No 1{table t} QD Atenolol 100 MG Vitamin K2 Vitamin K2 No 1{ table t} QD Vitamin K2 ZyrTEC 10 MG ZyrTEC 10 MG No 1{table t} QD ZyrTEC 10 MG Vital Signs Vital Name Observation Time Observation Value Comments Clara lisa height 2024-07-15 08:20:00 71.0 [in_i] Comm on [facility] weight 2024-07-15 08:20:00 255 [lb_av] Comm on [facility] bmi 2024-07-15 08:20:00 35.56 kg/m2 Comm on [facility] height 2024-05-24 09:00:00 71.00 [in_i] Com [facility] weight 2024-05-24 09:00:00 255.8 [lb_av] Co [facility] temperature 2024-05-24 09:00:00 97.6 [degF] Com [facility] bmi 2024-05-24 09:00:00 35.67 kg/m2 Comm on [facility] oximetry 2024-05-24 09:00:00 99 % Commo n [facility] blood pressure systolic 2024-05-24 09:00:00 144 mm[Hg] [facility] blood pressure diastolic 2024-05-24 09:00:00 76 mm[Hg] [facility] height 2024-02-01 13:50:00 71.00 [in_i] Com [facility] weight 2024-02-01 13:50:00 252.6 [lb_av] Co [facility] temperature 2024-02-01 13:50:00 97.6 [degF] Com [facility] bmi 2024-02-01 13:50:00 35.23 kg/m2 Comm on [facility] oximetry 2024-02-01 13:50:00 97 % Commo n [facility] blood pressure systolic 2024-02-01 13:50:00 142 mm[Hg] [facility] blood pressure diastolic 2024-02-01 13:50:00 74 mm[Hg] Common [facility] height 2024-01-11 08:00:00 71.00 [in_i] Com [facility] weight 2024-01-11 08:00:00 261.4 [lb_av] Co mmon [facility] temperature 2024-01-11 08:00:00 97.6 [degF] Com [facility] bmi 2024-01-11 08:00:00 36.45 kg/m2 Comm on [facility] oximetry 2024-01-11 08:00:00 98 % Commo n [facility] blood pressure systolic 2024-01-11 08:00:00 160 mm[Hg] Common [facility] blood pressure diastolic 2024-01-11 08:00:00 78 mm[Hg] Common [facility] height 2023-09-16 08:20:00 71.00 [in_i] Com [facility] weight 2023-09-16 08:20:00 259.0 [lb_av] Co mmon [facility] temperature 2023-09-16 08:20:00 97.2 [degF] Com [facility] bmi 2023-09-16 08:20:00 36.12 kg/m2 Comm on [facility] oximetry 2023-09-16 08:20:00 100 % Commo n [facility] respiratory rate 2023-09-16 08:20:00 18 /min Common [facility] blood pressure systolic 2023-09-16 08:20:00 162 mm[Hg] Common [facility] blood pressure diastolic 2023-09-16 08:20:00 90 mm[Hg] [facility] Encounters Start Date/Time End Date/Time Encounter Type Admission Type Attending Clinicians Care Facility Care Department Encounter ID Source 2024-05-09 11:45:00 Outpatient Adrian Garza [facility] ST[facility] [id number] [facility] 2024-01-08 10:00:01 Outpatient Adrian Garza [facility] [id number] [facility] 2024-01-07 14:36:00 Outpatient Angie Parikh [facility] [id number] [facility] 2023-10-01 08:01:00 Outpatient Angie Parikh [facility] ST[facility] [id number] [facility] 2023-09-16 08:27:00 Outpatient Angie Parikh [facility] ST[facility] [id number] [facility] 2024-07-15 00:00:00 2024-07-15 00:00:00 (TEL) [facility] ST[facility] [id number] [facility] 2024-07-15 00:00:00 2024-07-15 00:00:00 OFFICE VISIT ESTAB PT LEVEL 4 [facility] ST[facility] [id number] [facility] 2024-07-14 00:00:00 2024-07-14 00:00:00 (TEL) [facility]C ST[facility]C [id number] [facility] 2024-05-24 00:00:00 2024-05-24 00:00:00 OFFICE VISIT ESTAB PT LEVEL 4 [facility] ST[facility] [id number] [facility] 2024-05-10 00:00:00 2024-05-10 00:00:00 (TEL) STLMLC STL[facility]C [id number] [facility] 2024-03-22 00:00:00 2024-03-22 00:00:00 (TEL) STLMLC STL[facility]C [id number] [facility] 2024-02-16 00:00:00 2024-02-16 00:00:00 (TEL) STLMLC STLMLC [id number] [facility] 2024-02-01 00:00:00 2024-02-01 00:00:00 OFFICE VISIT ESTAB PT LEVEL 4 [facility]C STL[facility]C [id number] [facility] 2024-01-11 00:00:00 2024-01-11 00:00:00 (BODY HANGER) New Patient STLMLC STLMLC [id number] [facility] 2023-12-22 00:00:00 2023-12-22 00:00:00 (TEL) STLMLC STLMLC [id number] [facility] 2023-12-04 00:00:00 2023-12-04 00:00:00 (TEL) STLMLC STLMLC [id number] [facility] 2023-09-18 00:00:00 2023-09-18 00:00:00 (TEL) STLMLC STLMLC [id number] [facility] 2023-09-16 00:00:00 2023-09-16 00:00:00 OFFICE VISIT NEW PT LEVEL 4 [facility]LMLC STLMLC [id number] [facility] Results Test Description Test Time Test Comments Results Result Co mments Source
[2024-07-17] MEDS ORDERED: cloNIDine HCL 0.1 MG TAB ONE (17:56)
[2024-07-17 18:27] LABS: Absolute Eosinophils 0.1 K/uL (0-0.5); Absolute Lymphocytes (CBC) 1.8 K/uL (0.7-4.9); Absolute Monocytes 0.7 K/uL (0.1-1.3); Absolute Neutrophil 4.5 K/uL (1.8-8.0); Basophils % 0.6 % (0-1.3); Eosinophils % 1.3 % (0-4.4); Hematocrit 53.4 % (39.6-49.0); Hemoglobin 17.9 g/dL (13.6-17.9); Lymphocytes % 24.9 % (15.3-44.8); MCH 30.7 pg (27.0-35.0); MCHC 33.6 g/dL (32.0-36.0); MCV 91.4 fL (80-100); MPV 7.8 fL (7.6-11.3); Monocytes % 9.7 % (3.3-12.3); Neutrophils % 63.5 % (41.7-73.7); Nucleated Red Blood Cells % 0.2 % (0-0); Platelets 250 thou/uL (152-406); RBC Red Blood Cell Count 5.84 M/uL (4.33-5.43); Red Cell Distribution Width 15.1 % (12.1-15.2)
[2024-07-17 18:55] LABS: Albumin 3.9 g/dL (3.4-5.0); Albumin/Globulin Ratio 1.2 (1.1-1.8); Anion Gap 7.8 mEq/L (5.0-15.0); Bilirubin Direct 0.2 mg/dL (0-0.2); Bilirubin Indirect, Calculated 0.4 mg/dL (0.2-0.8); Bilirubin Total 0.6 mg/dL (0.2-1.0); Globulin 3.3 g/dL (2.3-3.5); Potassium 3.8 mEq/L (3.5-5.1); Protein, Total 7.2 g/dL (6.4-8.2); Troponin High Sensitivity 12.5 pg/mL (<58.9)
--- NOTE | 2024-07-17 18:56 | RAD REPORT ---
EXAM: Chest Single View HISTORY: htn COMPARISON: 09/17/2023 FINDINGS: LUNGS/PLEURA: The lungs are clear. No pleural effusions or pneumothorax. No pulmonary edema. MEDIASTINUM: The mediastinal silhouette is within normal limits. CARDIAC: Mild cardiomegaly UPPER ABDOMEN: No significant abnormality. BONES: No acute abnormality. LINES/TUBES/OTHER: N/A IMPRESSION: No evidence of acute cardiopulmonary disease.
--- NOTE | 2024-07-17 20:21 | ER ---
Nurse's Notes [facility] Name: Eliceo Hamilton Age: 48 yrs Sex: Male : 1975 Arrival Date: 07/17/2024 Time: 16:35 Bed 18 Private MD: Diagnosis: Essential (primary) hypertension Presentation: 07/17 17:06 Chief complaint: Patient states: blood pressure been high all weekend, SBP in 160s. tm6 Left leg painful and numb. Some dizziness and shortness of breath. Right shoulder in pain, may be pinched nerve. Coronavirus screen: Client denies travel out of the [place] in the last 14 days. Ebola Screen: Patient negative for fever greater than or equal to 101.5 degrees Fahrenheit, and additional compatible Ebola Virus Disease symptoms Patient denies exposure to infectious person. Patient denies travel to an Ebola-affected area in the 21 days before illness onset. No symptoms or risks identified at this time. 17:06 Method Of Arrival: Ambulatory tm6 17:09 Initial Sepsis Screen: Does the patient meet any 2 criteria? No. Patient's initial tm6 sepsis screen is negative. Does the patient have a suspected source of infection? No. Patient's initial sepsis screen is negative. Risk Assessment: Do you want to hurt yourself or someone else? Patient reports no desire to harm self or others. Onset of symptoms was July 15, 2024. 17:12 Acuity: KITTY 3 tm6 Triage Assessment: 17:09 General: Appears in no apparent distress. Behavior is calm, cooperative. Pain: tm6 Complains of pain in right arm and left leg. Pain: Quality of pain is described as aching, tingling, numb. EENT: No signs and/or symptoms were reported regarding the EENT system. Neuro: Level of Consciousness is awake, alert, obeys commands, Oriented to person, place, time, situation. Cardiovascular: Patient's skin is warm and dry. Respiratory: Airway is patent Respiratory effort is even, unlabored, Respiratory pattern is regular, symmetrical. GI: Abdomen is round non-distended, Reports diarrhea. : No signs and/or symptoms were reported regarding the genitourinary system. Derm: No signs and/or symptoms reported regarding the dermatologic system. Musculoskeletal: Reports pain in right arm and left leg. Historical: - Allergies: 17:07 PENICILLINS; tm6 - PMHx: 17:07 Anxiety; attention deficit disorder; back problem (possible fracture); Hypertensive tm6 disorder; - PSHx: 17:07 hernia repair; Tonsillectomy; tm6 - Immunization history:: Flu vaccine is not up to date. - Infectious Disease History:: Denies. - Social history:: Patient uses alcohol, on a daily basis. Smoking status: Patient reports the use of cigarette tobacco products, cigars. Screenin:44 [facility] ED Fall Risk Assessment (Adult) History of falling in the last 3 months, ll1 including since admission No falls in past 3 months (0 pts) Confusion or Disorientation No (0 pts) Intoxicated or Sedated No (0 pts) Impaired Gait No (0 pts) Mobility Assist Device Used No (0 pt) Altered Elimination No (0 pt) Score/Fall Risk Level 0 - 2 = Low Risk Maintained a safe environment, Hourly rounding (assess needs \T\ fall precautionary measures) done. Abuse screen: Denies threats or abuse. Nutritional screening: No deficits noted. Tuberculosis screening: No symptoms or risk factors identified. Assessment: 18:00 General: Appears uncomfortable, Behavior is calm, cooperative, appropriate for age, ll1 Reports high BP. Pain: Complains of pain in left leg Quality of pain is described as aching. Neuro: Reports. Cardiovascular: Reports fatigue, shortness of breath, elevated BP. Musculoskeletal: Reports numbness in left leg. 18:40 Reassessment: No changes from previously documented assessment. Patient and/or family ll1 updated on plan of care and expected duration. Pain level reassessed. Patient is alert, oriented x 3, equal unlabored respirations, skin warm/dry/pink. 19:10 Reassessment: Patient and/or family updated on plan of care and expected duration. Pain br2 level reassessed. Patient is alert, oriented x 3, equal unlabored respirations, skin warm/dry/pink. BLOOD PRESSURE STILL ELEVATED Patient states feeling better. Patient states symptoms have improved. Pain:. 20:36 Reassessment: No changes from previously documented assessment. Patient and/or family br2 updated on plan of care and expected duration. Pain level reassessed. Patient is alert, oriented x 3, equal unlabored respirations, skin warm/dry/pink. Patient denies pain at this time. Vital Signs: 17:09 BP 184 / 119; Pulse 76; Resp 19; Pulse Ox 100% on R/A; MAP 137 mmHg; tm6 17:13 Weight 113.4 kg; Height 5 ft. 11 in. ; Pain 3/10; tm6 18:04 BP 166 / 113; Pulse 71; Resp 18; Temp 98; ll1 18:16 BP 165 / 107; Pulse 71; ll1 18:42 BP 173 / 108; Pulse 68; Resp 18; ll1 18:58 BP 168 / 112; Pulse 68; ll1 19:08 BP 172 / 120; Pulse 68; Resp 18; Pulse Ox 100% on R/A; ll1 19:33 BP 160 / 115; Pulse 70; Resp 18 S; Pulse Ox 96% on R/A; br2 20:09 BP 136 / 105; Pulse 66; Resp 18 S; Pulse Ox 100% on R/A; br2 20:36 BP 157 / 98; Pulse 63; Resp 18 S; Temp 97.1(TE); Pulse Ox 99% on R/A; Pain 0/10; br2 17:13 Body Mass Index 34.87 (113.40 kg, 180.34 cm) tm6 17:13 Pain Scale: Adult tm6 20:36 Pain Scale: Adult br2 ED Course: 16:37 Patient arrived in ED. im 16:58 Angelica Friedman FNP-C is PHCP. kb 16:58 Lanre Alonso MD is Attending Physician. kb 17:09 Arm band placed on right wrist. tm6 17:10 Patient has correct armband on for positive identification. Provided Education on: ER ll1 procedures and process. 17:12 Triage completed. tm6 17:53 Karl Lawson, MARCO is Primary Nurse. ll1 17:54 Patient placed in an exam room, on a stretcher. ll1 18:00 Inserted saline lock: 22 gauge in right antecubital area, using aseptic technique. ll1 Blood collected. Flushed with 10 mL NS. 18:34 EKG done, by ED staff, reviewed by Angelica CALLE. ll1 18:48 XRAY Chest (1 view) In Process Unspecified. EDMS 20:36 IV discontinued, intact, bleeding controlled, No redness/swelling at site. Pressure br2 dressing applied. 20:37 No provider procedures requiring assistance completed. br2 Administered Medications: 18:04 Drug: cloNIDine PO 0.1 mg PO once Route: PO; ll1 18:45 Follow up: Response: No adverse reaction; Blood sugar is unchanged ll1 Medication: 18:45 VIS not applicable for this client. ll1 Outcome: 20:21 Discharge ordered by MD. odom 20:36 Discharged to home ambulatory, br2 20:36 Condition: improved 20:36 Discharge instructions given to patient, Instructed on discharge instructions, follow up and referral plans. Demonstrated understanding of instructions, follow-up care, 20:38 Patient left the ED. br2 Signatures: Dispatcher [employer] EDMS Angelica Friedman, ORNAMENTAL IRON WORKER APPRENTICE-C PETE-Karl Parada RN RN ll1 Maria R Polanco Tawney RN RN tm6 Ce Mckeon RN RN br2 Corrections: (The following items were deleted from the chart) 17:10 17:06 Chief complaint: Patient states: blood pressure been high all weekend, SBP in tm6 160s. tm6 18:46 18:04 BP 166 / 113; Pulse 71bpm; Resp 18bpm; ll1 ll1
--- NOTE | 2024-07-17 20:21 | EDPHYS ---
Physician Documentation [facility] Name: Eliceo Hamilton Age: 48 yrs Sex: Male : 1975 Arrival Date: 07/17/2024 Time: 16:35 Bed 18 Private MD: ED Physician Lanre Alonso HPI: 07/17 20:22 This 48 yrs old Male presents to ER via Ambulatory with complaints of High Blood kb Pressure, Numbness - of leg. 20:22 Pt is a 48 year old male who presents for high blood pressure. States his blood kb pressure has been high all weekend, worse today up to 190 systolic. States he has had a viral illness for the last 5 days so he hasn't been drinking caffeine, smoking or drinking. States he normally drinks daily. Denies headache, chest pain. Historical: - Allergies: 17:07 PENICILLINS; tm6 - PMHx: 17:07 Anxiety; attention deficit disorder; back problem (possible fracture); Hypertensive tm6 disorder; - PSHx: 17:07 hernia repair; Tonsillectomy; tm6 - Immunization history:: Flu vaccine is not up to date. - Infectious Disease History:: Denies. - Social history:: Patient uses alcohol, on a daily basis. Smoking status: Patient reports the use of cigarette tobacco products, cigars. ROS: 18:35 Constitutional: As per HPI kb Exam: 18:35 Constitutional: This is a well developed, well nourished patient who is awake, alert, kb and in no acute distress. Head/Face: Normocephalic, atraumatic. ENT: Moist Mucous membranes Cardiovascular: Regular rate Respiratory: Respirations even and unlabored. No increased work of breathing. Talking in full sentences Abdomen/GI: Soft, non-tender. No distention Skin: Warm, dry with normal turgor. Normal color. MS/ Extremity: Pulses equal, no cyanosis. Neurovascular intact. Full, normal range of motion. Neuro: Awake and alert, GCS 15, oriented to person, place, time, and situation. 18:35 ECG was reviewed by the Attending Physician. Vital Signs: 17:09 BP 184 / 119; Pulse 76; Resp 19; Pulse Ox 100% on R/A; MAP 137 mmHg; tm6 17:13 Weight 113.4 kg; Height 5 ft. 11 in. ; Pain 3/10; tm6 18:04 BP 166 / 113; Pulse 71; Resp 18; Temp 98; ll1 18:16 BP 165 / 107; Pulse 71; ll1 18:42 BP 173 / 108; Pulse 68; Resp 18; ll1 18:58 BP 168 / 112; Pulse 68; ll1 19:08 BP 172 / 120; Pulse 68; Resp 18; Pulse Ox 100% on R/A; ll1 19:33 BP 160 / 115; Pulse 70; Resp 18 S; Pulse Ox 96% on R/A; br2 20:09 BP 136 / 105; Pulse 66; Resp 18 S; Pulse Ox 100% on R/A; br2 20:36 BP 157 / 98; Pulse 63; Resp 18 S; Temp 97.1(TE); Pulse Ox 99% on R/A; Pain 0/10; br2 17:13 Body Mass Index 34.87 (113.40 kg, 180.34 cm) tm6 17:13 Pain Scale: Adult tm6 20:36 Pain Scale: Adult br2 MDM: 16:58 Medical Screening Exam initiated kb 20:21 Differential diagnosis: hypertensive crisis, Malignant HTN. Data reviewed: vital signs, kb nurses notes. Historians other than the Patient: Spouse/Significant Other: . Counseling: I had a detailed discussion with the patient and/or guardian regarding the historical points, exam findings, and any diagnostic results supporting the discharge/admit diagnosis, lab results, radiology results, the need for outpatient follow up, a family practitioner, to return to the emergency department if symptoms worsen or persist or if there are any questions or concerns that arise at home. 07/17 17:15 Order name: Basic Metabolic Panel; Complete Time: 19:00 kb 07/17 17:15 Order name: CBC with Diff; Complete Time: 18:35 kb 07/17 17:15 Order name: LFT's; Complete Time: 19:00 kb 07/17 17:15 Order name: Magnesium; Complete Time: 19:00 kb 07/17 17:15 Order name: NT PRO-BNP; Complete Time: 19:00 kb 07/17 17:15 Order name: Troponin HS; Complete Time: 19:00 kb 07/17 17:15 Order name: XRAY Chest (1 view); Complete Time: 19:00 kb 07/17 17:15 Order name: EKG; Complete Time: 17:16 kb 07/17 17:15 Order name: Cardiac monitoring; Complete Time: 18:34 kb 07/17 17:15 Order name: EKG - Nurse/Tech; Complete Time: 18:34 kb 07/17 17:15 Order name: IV Saline Lock; Complete Time: 17:59 kb 07/17 17:15 Order name: Labs collected and sent; Complete Time: 17:59 kb 07/17 17:15 Order name: O2 Per Protocol; Complete Time: 17:54 kb 07/17 17:15 Order name: O2 Sat Monitoring; Complete Time: 17:54 kb 07/17 19:01 Order name: Vital Signs; Complete Time: 19:02 kb EC:35 Rate is 63 beats/min. Rhythm is regular. QRS [place] is Normal. ND interval is normal at kb 190 msec. QRS interval is normal at 102 msec. QT interval is normal at 399 msec. Administered Medications: 18:04 Drug: cloNIDine PO 0.1 mg PO once Route: PO; ll1 18:45 Follow up: Response: No adverse reaction; Blood sugar is unchanged ll1 Disposition: 07/18 07:06 Co-signature as Attending Physician, Lanre Alonso MD I reviewed the patient's care rn provided by the Advanced Practice Provider and agree with the diagnosis and treatment plan. Disposition Summary: 07/17/24 20:21 Discharge Ordered Notes: Location: Home kb Condition: Stable kb Diagnosis - Essential (primary) hypertension kb Followup: kb - With: Emergency Department - When: As needed - Reason: Worsening of condition Followup: kb - With: Private Physician - When: 2 - 3 days - Reason: Recheck today's complaints, Continuance of care, Re-evaluation by your physician Discharge Instructions: - Discharge Summary Sheet kb - Hypertension, Adult, Eyso-jf-Ayul kb - How to Take Your Blood Pressure, Onkc-es-Aloa kb Forms: - Medication Reconciliation Form kb - Antibiotic Education kb - Prescription Opioid Use kb - Patient Portal Instructions kb - Leadership Thank You Letter kb Signatures: Dispatcher [employer] Angelica Beasley, PETE-C SKEIN YARD DRIER-Lanre Allen MD MD rn Lewis, Lynsay, RN RN ll1 Araseli Weaver RN RN tm6 Corrections: (The following items were deleted from the chart) 07/17 17:16 17:16 BASIC METABOLIC PANEL+C.LAB.BRZ ordered. EDMS EDMS 17:16 17:16 CBC+H.LAB.BRZ ordered. EDMS EDMS 17:16 17:16 HEPATIC FUNCTION+C.LAB.BRZ ordered. EDMS EDMS 17:16 17:16 MAGNESIUM+C.LAB.BRZ ordered. EDMS EDMS 17:16 17:16 PROBNP+C.LAB.BRZ ordered. EDMS EDMS 17:16 17:16 Troponin High Sensitivity+C.LAB.BRZ ordered. EDMS EDMS
[2024-07-17 22:03] VITALS: BP 157/98; TEMP 97.1; O2SAT 99
--- NOTE | 2024-07-18 11:10 | EKG ---
Test Date: 2024-07-17 Test Time: 18:32:53 Senior Systems Programmer: ENLLY MEASUREMENT RESULTS: Intervals: Rate: 63 RI: 190 QRSD: 102 QT: 390 QTc: 399 [place]: P: 63 RI: 190 QRS: -5 T: 45 INTERPRETIVE STATEMENTS: Normal sinus rhythm Nonspecific T wave abnormality Abnormal ECG Compared to ECG 09/17/2023 22:01:17 T-wave abnormality now present Electronically Signed On 07-18-24 11:08:34 LICENSED PROFESSIONAL COUNSELOR by Rick Guzman
== END 2024-07-17 20:38 | disposition home or self-care (01) ==
LOC: ER 16:35
DX: I10 Essential (primary) hypertension (principal); Z72.0 Tobacco use
CPT/HCPCS: 36415; 71045; 80048; 80076; 83735; 83880; 84484; 85025; 93005; 99284